=== PATIENT | male | born 1960 | race Caucasian/White ===

== ENCOUNTER 2022-03-24 05:46 | Emergency (ER) | payer MEDICAID, SELFPAY ==
--- NOTE | 2022-03-24 | ECG_ITS ---
Test Reason : MED CLEARANCE Blood Pressure : / mmHG Vent. Rate : 066 BPM Atrial Rate : 066 BPM P-R Int : 158 ms QRS Dur : 094 ms QT Int : 412 ms P-R-T Axes : 032 009 021 degrees QTc Int : 431 ms Normal sinus rhythm Normal ECG When compared with ECG of 06-FEB-2020 20:11, No significant change was found Referred By: Generic ED Physician Electronically Signed By:CHARI ALFREDO
[2022-03-24 05:49] VITALS: BP 165/95; PULSE 86; RESP 16; TEMP 36.9; O2SAT 94; BMI 34.9
[2022-03-24 06:17] LABS: MANUAL DIFF FLAG NO
[2022-03-24 06:25] LABS: COVID-19 Test Negative (Negative)
[2022-03-24 06:36] LABS: Basophils Absolute Auto 0.1 X10*3/uL (0.0-0.2); Basophils Percent Auto 0.8 % (0-2); Eosinophils Absolute Auto 0.1 X10*3/uL (0.0-0.4); Eosinophils Percent Auto 1.9 % (0-4); Hematocrit 42.8 % (42.0-52.0); Imm Gran Abs Auto 0.02 X10*3/uL (0.00-0.03); Imm Gran Pct Auto 0.3 % (0.0-0.4); Lymphocytes Absolute Auto 1.4 X10*3/uL (1.2-4.9); Lymphocytes Percent Auto 21.9 % (20-40); Mean Corpuscular Volume 94.1 fL (80.0-98.0); Monocytes Absolute Auto 0.6 X10*3/uL (0.1-1.2); Monocytes Percent Auto 9.3 % (2-11); Neutrophils Absolute Auto 4.2 x10*3/uL (2.0-8.3); Neutrophils Percent Auto 65.8 % (45-73); Platelet Count 187 X10*3/uL (160-400); Red Blood Count 4.55 X10*6/uL (4.60-5.80); Red Cell Distribution Width 13.8 % (11.0-16.0); White Blood Count 6.4 X10*3/uL (4.8-10.8)
--- NOTE | 2022-03-24 06:47 | PC.NURSE ---
[facility] referral completed/confirmed/pending ETA, med rec completed/pending provider's approval, behavior non concerning, will continue to monitor.
[2022-03-24 06:56] LABS: Alanine Aminotransferase 13 U/L (0-40); Albumin Level 4.2 g/dL (3.5-5.0); Alkaline Phosphatase 75 U/L (39-117); Anion Gap 14 (12-20); Aspartate Amino Transferase 18 U/L (5-37); Bilirubin Total 0.8 mg/dL (0.0-1.0); Blood Urea Nitrogen 11 mg/dL (9-16); Calcium 8.8 mg/dL (8.4-10.2); Carbon Dioxide 23 mmol/L (22-29); Chloride 104 mmol/L (96-108); Creatinine Clr Calc Pharmacy 81.4; Estimated Glomerular Filt Rate 58; Glucose Random 103 mg/dL (60-115); Potassium 3.3 mmol/L (3.3-5.1); Sodium 138 mmol/L (135-145); Total Protein 6.9 g/dL (6.5-8.0)
[2022-03-24 07:01] LABS: Acetaminophen LAB < 1 mcg/mL (<30); Ethanol < 10 mg/dL; Magnesium 1.9 mg/dL (1.6-2.6); Salicylate < 5.0 mg/dL (15-30)
[2022-03-24 07:30] LABS: Amphetamine Screen Urine Not Detected (Not Detect); Barbiturates, Urine Not Detected (Not Detect); Benzodiazepines Screen Urine Not Detected (Not Detect); Cannabinoid Screen Urine Not Detected (Not Detect); Cocaine Screen Urine Not Detected (Not Detect); Fentanyl, urine Not Detected (Not Detect); Opiate Screen Urine Not Detected (Not Detect); Phencyclidine Screen Urine Not Detected (Not Detect)
[2022-03-24 07:41] LABS: Appearance Urine Clear; Color Urine Yellow; Glucose Urine UA Negative (Negative); Leukocyte Esterase Urine Negative (Negative); Nitrite Urine Negative (Negative); Urine Blood Negative (Negative); Urine Ketones Negative (Negative); Urine Protein Negative (Neg-Trace)
[2022-03-24 08:00] VITALS: BP 160/84; PULSE 60; RESP 14; TEMP 36.7; O2SAT 95
--- NOTE | 2022-03-24 08:07 | ED.GENADULT ---
HPI - General Adult General Chief complaint: Psychiatric Symptoms Stated complaint: crisis Time Seen by Provider: 03/24/22 08:06 Source: patient, EMS and police Mode of arrival: EMS Limitations: no limitations History of Present Illness HPI narrative: Patient is a 62 year old male presenting to the emergency department today with suicidal ideation. Patient states that he has been much more depressed lately and is suicidal. Patient states that he will drink bleach to kill himself. Patient denies any dizziness, lightheadedness, abdominal pain, nausea, vomiting, fever, chills, blurry vision, double vision, loss of vision, chest pain, difficulty breathing, shortness of breath, back pain, night sweats, pain with urination, increased urinary frequency, increased urinary urgency, blood in his urine or stool, syncope or a near syncopal episode, recent trauma or falls, bowel incontinence, bladder incontinence, bowel retention, bladder retention, or any other complaints at this time. Onset (ago): day(s) Radiation: non-radiation Severity: moderate Severity scale (1-10): 5 Relieving factors: none Exacerbating factors: none Associated symptoms: denies other symptoms Treatments prior to arrival: none Related Data Home Medications Medication Instructions Recorded Confirmed amlodipine 2.5 mg tablet 2.5 mg PO DAILY 03/24/22 03/24/22 buspirone 10 mg tablet 10 mg PO BID 03/24/22 03/24/22 cholecalciferol (vitamin D3) 50 50 mcg PO DAILY 03/24/22 03/24/22 mcg (2,000 unit) tablet cyanocobalamin (vitamin B-12) 1,000 mcg PO DAILY 03/24/22 03/24/22 1,000 mcg tablet omeprazole 20 mg capsule,delayed 20 mg PO DAILY 03/24/22 03/24/22 release sertraline 200 mg capsule 200 mg PO DAILY 03/24/22 03/24/22 Allergies Allergy/AdvReac Type Severity Reaction Status Date / Time No Known Allergies Allergy Unverified 03/05/20 19:52 [No Known Allergies*] Review of Systems Constitutional: Constitutional: Reports no additional constitutional complaints, Denies chills, Denies fever(s) and Denies night sweats Eyes: Eyes: Reports no additional eye complaints, Denies blurry vision, Denies change in vision, Denies diplopia, Denies eye discharge, Denies loss of vision and Denies eye pain ENT: Denies dizziness Cardiovascular: Cardiovascular: Reports no additional cardiovascular complaints, Denies chest pain, Denies lightheadedness, Denies Loss of Consciousness and Denies dyspnea Respiratory: Respiratory: Reports no additional respiratory complaints and Denies dyspnea Gastrointestinal: Gastrointestinal: Reports no additional gastrointestinal complaints, Denies abdominal pain, Denies melena, Denies hematochezia, Denies change in bowel habits and Denies change in stool character Genitourinary: Genitourinary: Reports no additional male genitourinary complaints, Denies hematuria, Denies oliguria, Denies difficulty urinating, Denies dysuria, Denies urinary frequency, Denies urinary hesitancy, Denies urinary incontinence and Denies urinary urgency Musculoskeletal: Musculoskeletal: Reports no additional musculoskeletal complaints, Denies numbness and Denies tingling Neurologic: Denies dizziness, Denies loss of vision, Denies numbness and Denies tingling Psychiatric: Psychiatric: Reports no additional psychiatric complaints and Reports suicidal ideation Endocrine: Endocrine: Reports no additional endocrine complaints Hematologic/Lymphatic: Hematologic/Lymphatic: Reports no additional hematologic/lymphatic complaints Allergic/Immunologic: Allergic/Immunologic: Reports no additional allergic/immunologic complaints PMFSH Past Medical History Attestation statement: The following information was validated with the patient. Source: old records reviewed Social History Social History Advance Directives: No Physical Exam ED Vital Signs: Vital Signs - 24 hr 03/24/22 05:49 03/24/22 08:00 03/24/22 10:23 Temperature 98.4 F 98.0 F 97.2 F Pulse Rate 86 60 58 Respiratory Rate 16 14 Blood Pressure 165/95 H 160/84 H 162/82 H Pulse Oximetry 94 95 95 Oxygen Delivery Method Room Air Room Air Room Air 03/24/22 15:24 Temperature Pulse Rate Respiratory Rate 18 Blood Pressure Pulse Oximetry Oxygen Delivery Method BMI result Body Mass Index 34.9 Const General: cooperative, no acute distress, alert and awake Nutritional Appearance: well nourished Orientation/consciousness: patient oriented x3 Limitations: no limitations HENMT Head: Yes normal to inspection and Yes atraumatic Ears: hearing grossly normal bilaterally and external ears normal General nose exam: Normal external nose present, no nasal discharge noted and no epistaxis Face and sinus: Yes normal facial exam, No abrasion and No laceration Mouth: Normal oral and palatal mucosa present, no drooling and no muffled voice Eyes General: appearance normal, both eyes and all related structures Periorbital: periorbital findings normal Eyelids: Yes eyelids normal Conjunctivae: conjunctivae normal Pupils: Equal, round and reactive pupils present EOM: EOMs intact bilaterally Neck Neck: Yes normal visual inspection, Yes full ROM and Yes no lymphadenopathy Chest Chest palpation & inspection: normal inspection of the chest Resp Effort & Inspection: normal respiratory effort and able to speak in complete sentences Auscultation: clear to auscultation bilaterally Cardio Rate: regular rate Rhythm: regular rhythm GI Inspection: Yes normal to inspection Neuro General: patient oriented x3 and moves all extremities Cranial nerves: Yes Equal, round and reactive pupils present Cognition (Neuro): normal cognition Motor exam (neuro): 5/5 motor strength present throughout Sensory Exam: Normal double simultaneous stimulation for sensation Coordination: [id number] test normal Extrem General: Yes normal to inspection, Yes full ROM and Yes capillary refill normal Psych Appearance: grossly normal Mental Status: mental status grossly normal Affect: Sad affect present Attitude: cooperative Thought process: Normal thought process present Thought content: Suicidality present Insight: Good insight present (Psych) Medical Decision Making MDM Narrative Medical decision making narrative: Patient is a 62 year old male presenting to the emergency department today, on a section 12, with suicidal ideation. Patient's physical exam showed a depressed and suicidal individual. Patient's blood work was unremarkable. Patient's urine showed no acute process. CARE team evaluated the patient and recommended psychiatric admission. Patient is medically cleared for transfer or admission to inpatient psychiatric care. I explained my physical exam findings as well as all test results to the patient. I answered all questions asked by the patient. Patient verbalized agreement and understanding with this treatment plan and admission at the [facility]. Medical Records Medical records reviewed: Yes I reviewed the patient's medical records. Lab Data Lab results reviewed: Yes I reviewed the patient's lab results. Result diagrams: 03/24/22 06:06 03/24/22 06:06 Labs: Lab Results 03/24/22 03/24/22 03/24/22 Range/Units 06:00 06:06 06:06 WBC 6.4 (4.8-10.8) X10*3/uL RBC 4.55 L (4.60-5.80) X10*6/uL Hgb 15.0 (14.0-18.0) g/dl Hct 42.8 (42.0-52.0) % MCV 94.1 (80.0-98.0) fL MCH 33.0 (27.0-33.0) pg MCHC 35.0 (31.0-36.0) g/dl RDW 13.8 (11.0-16.0) % Plt Count 187 (160-400) X10*3/uL MPV 12.0 (9.4-12.4) fL Immature Gran % (Auto) 0.3 (0.0-0.4) % Neut % (Auto) 65.8 (45-73) % Lymph % (Auto) 21.9 (20-40) % [place] % (Auto) 9.3 (2-11) % Eos % (Auto) 1.9 (0-4) % Baso % (Auto) 0.8 (0-2) % Lymph # (Auto) 1.4 (1.2-4.9) X10*3/uL [place] # (Auto) 0.6 (0.1-1.2) X10*3/uL Eos # (Auto) 0.1 (0.0-0.4) X10*3/uL Baso # (Auto) 0.1 (0.0-0.2) X10*3/uL Abs Immat Gran (auto) 0.02 (0.00-0.03) X10*3/uL Absolute Neuts (auto) 4.2 (2.0-8.3) x10*3/uL Absolute Nucleated RBC 0.000 (0.0-0.012) X10*3/uL Nucleated RBC % (auto) 0.0 (0.0-0.2) /100WBC Sodium 138 (135-145) mmol/L Potassium 3.3 (3.3-5.1) mmol/L Chloride 104 (96-108) mmol/L Carbon Dioxide 23 (22-29) mmol/L Anion Gap 14 (12-20) BUN 11 (9-16) mg/dL Creatinine 1.26 (0.5-1.4) mg/dL Estim Creat Clear Calc 81.4 Estimated GFR 58 Random Glucose 103 (60-115) mg/dL Calcium 8.8 (8.4-10.2) mg/dL Magnesium (1.6-2.6) mg/dL Total Bilirubin 0.8 (0.0-1.0) mg/dL AST 18 (5-37) U/L ALT 13 (0-40) U/L Alkaline Phosphatase 75 (39-117) U/L Total Protein 6.9 (6.5-8.0) g/dL Albumin 4.2 (3.5-5.0) g/dL Urine Color Urine Appearance Urine pH (5.0-9.0) Ur Specific [place] (1.005-1.025) Urine Protein (Neg-Trace) mg/dL Urine Glucose (UA) (Negative) mg/dL Urine Ketones (Negative) mg/dL Urine Blood (Negative) Urine Nitrite (Negative) Ur Leukocyte Esterase (Negative) Salicylates (15-30) mg/dL Urine Opiates Screen (Not Detect) Urine Fentanyl Screen (Not Detect) Acetaminophen (<30) mcg/mL Ur Barbiturates Screen (Not Detect) Ur Phencyclidine Scrn (Not Detect) Ur Amphetamines Screen (Not Detect) U Benzodiazepines Scrn (Not Detect) Urine Cocaine Screen (Not Detect) U Marijuana (THC) Screen (Not Detect) Ethyl Alcohol mg/dL SARS-CoV-2 (PCR) COVID-19 (T[facility]SHA) Negative (Negative) COVID-19 Clin Com See Note Influenza Type A (PCR) (Negative) Influenza Type B (PCR) (Negative) RSV RNA Qual (PCR) (Negative) SARS-CoV-2 RNA (RT-PCR) (Negative) 03/24/22 03/24/22 03/24/22 Range/Units 06:06 07:05 07:05 WBC (4.8-10.8) X10*3/uL RBC (4.60-5.80) X10*6/uL Hgb (14.0-18.0) g/dl Hct (42.0-52.0) % MCV (80.0-98.0) fL MCH (27.0-33.0) pg MCHC (31.0-36.0) g/dl RDW (11.0-16.0) % Plt Count (160-400) X10*3/uL MPV (9.4-12.4) fL Immature Gran % (Auto) (0.0-0.4) % Neut % (Auto) (45-73) % Lymph % (Auto) (20-40) % [place] % (Auto) (2-11) % Eos % (Auto) (0-4) % Baso % (Auto) (0-2) % Lymph # (Auto) (1.2-4.9) X10*3/uL [place] # (Auto) (0.1-1.2) X10*3/uL Eos # (Auto) (0.0-0.4) X10*3/uL Baso # (Auto) (0.0-0.2) X10*3/uL Abs Immat Gran (auto) (0.00-0.03) X10*3/uL Absolute Neuts (auto) (2.0-8.3) x10*3/uL Absolute Nucleated RBC (0.0-0.012) X10*3/uL Nucleated RBC % (auto) (0.0-0.2) /100WBC Sodium (135-145) mmol/L Potassium (3.3-5.1) mmol/L Chloride (96-108) mmol/L Carbon Dioxide (22-29) mmol/L Anion Gap (12-20) BUN (9-16) mg/dL Creatinine (0.5-1.4) mg/dL Estim Creat Clear Calc Estimated GFR Random Glucose (60-115) mg/dL Calcium (8.4-10.2) mg/dL Magnesium 1.9 (1.6-2.6) mg/dL Total Bilirubin (0.0-1.0) mg/dL AST (5-37) U/L ALT (0-40) U/L Alkaline Phosphatase (39-117) U/L Total Protein (6.5-8.0) g/dL Albumin (3.5-5.0) g/dL Urine Color Yellow Urine Appearance Clear Urine pH 6.0 (5.0-9.0) Ur Specific [place] 1.010 (1.005-1.025) Urine Protein Negative (Neg-Trace) mg/dL Urine Glucose (UA) Negative (Negative) mg/dL Urine Ketones Negative (Negative) mg/dL Urine Blood Negative (Negative) Urine Nitrite Negative (Negative) Ur Leukocyte Esterase Negative (Negative) Salicylates < 5.0 L (15-30) mg/dL Urine Opiates Screen Not Detected (Not Detect) Urine Fentanyl Screen Not Detected (Not Detect) Acetaminophen < 1 (<30) mcg/mL Ur Barbiturates Screen Not Detected (Not Detect) Ur Phencyclidine Scrn Not Detected (Not Detect) Ur Amphetamines Screen Not Detected (Not Detect) U Benzodiazepines Scrn Not Detected (Not Detect) Urine Cocaine Screen Not Detected (Not Detect) U Marijuana (THC) Screen Not Detected (Not Detect) Ethyl Alcohol < 10 mg/dL SARS-CoV-2 (PCR) COVID-19 (TARSHA) (Negative) COVID-19 Clin Com Influenza Type A (PCR) (Negative) Influenza Type B (PCR) (Negative) RSV RNA Qual (PCR) (Negative) SARS-CoV-2 RNA (RT-PCR) (Negative) 03/24/22 03/24/22 Range/Units 10:40 10:40 WBC (4.8-10.8) X10*3/uL RBC (4.60-5.80) X10*6/uL Hgb (14.0-18.0) g/dl Hct (42.0-52.0) % MCV (80.0-98.0) fL MCH (27.0-33.0) pg MCHC (31.0-36.0) g/dl RDW (11.0-16.0) % Plt Count (160-400) X10*3/uL MPV (9.4-12.4) fL Immature Gran % (Auto) (0.0-0.4) % Neut % (Auto) (45-73) % Lymph % (Auto) (20-40) % [place] % (Auto) (2-11) % Eos % (Auto) (0-4) % Baso % (Auto) (0-2) % Lymph # (Auto) (1.2-4.9) X10*3/uL [place] # (Auto) (0.1-1.2) X10*3/uL Eos # (Auto) (0.0-0.4) X10*3/uL Baso # (Auto) (0.0-0.2) X10*3/uL Abs Immat Gran (auto) (0.00-0.03) X10*3/uL Absolute Neuts (auto) (2.0-8.3) x10*3/uL Absolute Nucleated RBC (0.0-0.012) X10*3/uL Nucleated RBC % (auto) (0.0-0.2) /100WBC Sodium (135-145) mmol/L Potassium (3.3-5.1) mmol/L Chloride (96-108) mmol/L Carbon Dioxide (22-29) mmol/L Anion Gap (12-20) BUN (9-16) mg/dL Creatinine (0.5-1.4) mg/dL Estim Creat Clear Calc Estimated GFR Random Glucose (60-115) mg/dL Calcium (8.4-10.2) mg/dL Magnesium (1.6-2.6) mg/dL Total Bilirubin (0.0-1.0) mg/dL AST (5-37) U/L ALT (0-40) U/L Alkaline Phosphatase (39-117) U/L Total Protein (6.5-8.0) g/dL Albumin (3.5-5.0) g/dL Urine Color Urine Appearance Urine pH (5.0-9.0) Ur Specific [place] (1.005-1.025) Urine Protein (Neg-Trace) mg/dL Urine Glucose (UA) (Negative) mg/dL Urine Ketones (Negative) mg/dL Urine Blood (Negative) Urine Nitrite (Negative) Ur Leukocyte Esterase (Negative) Salicylates (15-30) mg/dL Urine Opiates Screen (Not Detect) Urine Fentanyl Screen (Not Detect) Acetaminophen (<30) mcg/mL Ur Barbiturates Screen (Not Detect) Ur Phencyclidine Scrn (Not Detect) Ur Amphetamines Screen (Not Detect) U Benzodiazepines Scrn (Not Detect) Urine Cocaine Screen (Not Detect) U Marijuana (THC) Screen (Not Detect) Ethyl Alcohol mg/dL SARS-CoV-2 (PCR) Cancelled COVID-19 ([facility]ARSHA) (Negative) COVID-19 Clin Com Influenza Type A (PCR) NEGATIVE (Negative) Influenza Type B (PCR) NEGATIVE (Negative) RSV RNA Qual (PCR) NEGATIVE (Negative) SARS-CoV-2 RNA (RT-PCR) NEGATIVE (Negative) ECG Data Attestation: I personally reviewed and interpreted this ECG as follows: Prior ECG tracings: available for review Interpretation: Vent. Rate: 066 BPM ? ? Atrial Rate: 066 BPM P-R Int: 158 ms? QRS Dur: 094 ms QT Int: 412 ms ? ? ? P-R-T Axes: 032 009 021 degrees QTc Int: 431 ms ? Normal sinus rhythm Normal ECG When compared with ECG of 06-FEB-2020 20:11, No significant change was found ? Electronically Signed By:MARK BHATT DOFACP Dictated By: Mark Bhatt DO Signed By: Electronically signed by Mark Bhatt DO 03/24/22 1003 Discharge Plan Discharge Clinical Impression: Depression, Suicidal ideation Patient Disposition: Xfer Other [facility] Inst[facility]: Depression (ED) Prescriptions: No Action buspirone 10 mg Tablet 10 mg PO BID sertraline 200 mg Capsule 200 mg PO DAILY cyanocobalamin (vitamin B-12) 1,000 mcg Tablet 1,000 mcg PO DAILY amlodipine 2.5 mg Tablet 2.5 mg PO DAILY omeprazole 20 mg Capsule,Delayed Release(Dr/Ec) 20 mg PO DAILY cholecalciferol (vitamin D3) 50 mcg (2,000 unit) Tablet 50 mcg PO DAILY Interventions: ED Discharge Assessment Last Done: 03/24/22 15:40 Discharge Date/Time: 03/24/22 15:42 Print Language: Estonian
[2022-03-24 10:23] VITALS: BP 162/82; PULSE 58; TEMP 36.2; O2SAT 95
--- NOTE | 2022-03-24 10:59 | PHA.MEDREC ---
Addendum entered by Concha Avitia RPh 03/24/22 12:19: [ [facility] 03/24/22 @1220; added amlodipine, omeprazole, vitamin d, vitamin b12, and confirmed buspar and sertraline Original Note: Pharmacy Consult ? Medication Reconciliation Pharmacy has completed the medication reconciliation. Pt able to name sertraline and buspar, however he noted he also takes a blood pressure medication and omeprazole. [facility] which I am still waiting on, will update home medications once I receive that
--- NOTE | 2022-03-24 11:03 | PC.NURSE ---
[facility] WAITING TO BE SEEN BY [facility]
--- NOTE | 2022-03-24 11:09 | PC.NURSE ---
[facility] TODAY
[2022-03-24 11:30] LABS: Influenza A PCR NEGATIVE (Negative); Influenza B PCR NEGATIVE (Negative); Resp Syncy Virus RNA Qual PCR NEGATIVE (Negative); SARS COV2 PCR INHOUSE NEGATIVE (Negative)
[2022-03-24] MEDS: Sertraline HCL 100 MG TABLET 200 MG PO (12:01)
[2022-03-24] MEDS: busPIRone HCl 10 MG TABLET PO (12:01)
--- NOTE | 2022-03-24 12:49 | MHC.CARE ---
[facility] is [facility]
--- NOTE | 2022-03-24 14:49 | MHC.CARE ---
Pt has been accepted to the [facility]
[2022-03-24 15:24] VITALS: RESP 18
== END 2022-03-24 15:42 | disposition other institution (70) ==
PROVIDERS: Physician Assistant Medical; Emergency Provider Emergency Medicine Emergency Medical Services; PCP Family Medicine
DX: F32.A Depression, unspecified (principal); R45.851 Suicidal ideations; Z20.822 Contact with and (suspected) exposure to COVID-19; Z79.899 Other long term (current) drug therapy
CPT/HCPCS: 0241U; 36415; 80053; 80143; 80179; 80307; 81003; 82077; 83735; 85025; 87635; 93005; 99284; U0003; U0005

== ENCOUNTER 2022-12-31 05:04 | Emergency (ER) | payer OTHER, SELFPAY ==
--- NOTE | 2022-12-31 | ECG_ITS ---
Test Reason : Checking for QT Prolongation Blood Pressure : / mmHG Vent. Rate : 061 BPM Atrial Rate : 061 BPM P-R Int : 174 ms QRS Dur : 090 ms QT Int : 406 ms P-R-T Axes : 032 -02 004 degrees QTc Int : 408 ms Normal sinus rhythm Normal ECG When compared with ECG of 24-MAR-2022 06:17, T wave amplitude has decreased in Anterior leads Referred By: Kirsten Main Electronically Signed By:GILDA CUNNINGHAM MD
[2022-12-31 05:09] VITALS: BP 178/99; PULSE 88; RESP 17; TEMP 37; O2SAT 94; BMI 35.6
[2022-12-31 05:51] LABS: Basophils Absolute Auto 0.1 X10*3/uL (0.0-0.2); Basophils Percent Auto 0.8 % (0-2); Eosinophils Absolute Auto 0.2 X10*3/uL (0.0-0.4); Eosinophils Percent Auto 1.9 % (0-4); Hemoglobin 14.5 g/dl (14.0-18.0); Imm Gran Abs Auto 0.04 X10*3/uL (0.00-0.03); Imm Gran Pct Auto 0.5 % (0.0-0.4); Lymphocytes Percent Auto 12.1 % (20-40); MANUAL DIFF FLAG NO; Mean Corpuscular HGB Conc 34.5 g/dl (31.0-36.0); Mean Corpuscular Hemoglobin 32.5 pg (27.0-33.0); Mean Corpuscular Volume 94.2 fL (80.0-98.0); Mean Platelet Volume 12.9 fL (9.4-12.4); Monocytes Absolute Auto 0.7 X10*3/uL (0.1-1.2); Monocytes Percent Auto 8.5 % (2-11); Neutrophils Percent Auto 76.2 % (45-73); Platelet Count 148 X10*3/uL (160-400); Red Blood Count 4.46 X10*6/uL (4.60-5.80); Red Cell Distribution Width 14.1 % (11.0-16.0); White Blood Count 7.9 X10*3/uL (4.8-10.8)
[2022-12-31 05:53] LABS: Appearance Urine Clear; Color Urine Dark Yellow; Glucose Urine UA Negative (Negative); Leukocyte Esterase Urine Negative (Negative); Nitrite Urine Negative (Negative); PH 5.5 (5.0-9.0); Specific Gravity - Urine >= 1.030 (1.005-1.025); UMIC TRIGGER UA YES; Urine Blood Negative (Negative); Urine Ketones Negative (Negative); Urine Protein 30 (1+) mg/dL (Neg-Trace)
[2022-12-31 05:58] LABS: Bacteria Urine None Seen (None Seen); RBC Urine 0-2 /HPF (0-2); Squamous Epithelial Cell Urine 0-2 /HPF (0-2); WBC Urine 0-5 /HPF (0-5)
[2022-12-31 06:02] LABS: Amphetamine Screen Urine Not Detected (Not Detect); Barbiturates, Urine Not Detected (Not Detect); Benzodiazepines Screen Urine Not Detected (Not Detect); Cannabinoid Screen Urine Not Detected (Not Detect); Cocaine Screen Urine Not Detected (Not Detect); Fentanyl, urine Not Detected (Not Detect); Opiate Screen Urine Not Detected (Not Detect); Phencyclidine Screen Urine Not Detected (Not Detect)
[2022-12-31 06:05] LABS: Alanine Aminotransferase 8 U/L (0-40); Albumin Level 4.1 g/dL (3.5-5.0); Alkaline Phosphatase 67 U/L (39-117); Anion Gap 12 (12-20); Aspartate Amino Transferase 14 U/L (5-37); Bilirubin Total 0.6 mg/dL (0.0-1.0); Blood Urea Nitrogen 10 mg/dL (9-16); Calcium 9.4 mg/dL (8.4-10.2); Carbon Dioxide 28 mmol/L (22-29); Chloride 104 mmol/L (96-108); Creatinine Clr Calc Pharmacy 79.7; Estimated Glomerular Filt Rate 56; Ethanol < 10 mg/dL; Glucose Random 131 mg/dL (60-115); Potassium 3.9 mmol/L (3.3-5.1); Sodium 140 mmol/L (135-145); Total Protein 7.1 g/dL (6.5-8.0)
[2022-12-31 06:06] LABS: Acetaminophen LAB < 17 mcg/mL (<30); Salicylate < 5.0 mg/dL (15-30)
--- NOTE | 2022-12-31 06:21 | PC.NURSE ---
Patient is in bed resting quietly, no distress observed/reported, care consult ordered for SI, pending evaluation in the morning, med rec completed based on patient report unable to obtain med claim history because [facility], behavior non concerning, will continue to monitor.
[2022-12-31 06:25] LABS: TSH reflex Free T4 3.07 uIU/mL (0.32-4.0)
--- NOTE | 2022-12-31 07:28 | PC.NURSE ---
Resumed care of patient this morning, pt is awake, finished eating breakfast. this financial underwriter sat down and talked with patient. He reports he feels that his current medications are working well, and that he has good support in the community, however when all of the negative thoughts build up he has a hard time handling them. Last night was the first time he reports actually acting on his SI thoughts by mixing the household model maker scale. He reports he mixed them, and then sat there and looked at them for awhile before calling crisis but did not drink any of them. He is a/ox4, reporting that he would alert staff if he had any continued thoughts of harming himself. Provider is currently bedside to talk with patient. Awaiting care team consult at this time.
--- NOTE | 2022-12-31 07:29 | ED.PSYCH ---
HPI - Psych General Chief Complaint: Psychiatric Symptoms Stated Complaint: si Time Seen by Provider: 12/31/22 07:29 Source: patient, EMS, RN notes reviewed and old records reviewed Mode of arrival: EMS History of Present Illness HPI Narrative: 62-year-old male with no significant past medical history presenting to the ED via EMS complaining of suicidal ideations with plan to drink a bunch of cleaning products early this morning. Reports family problems, without support system. Admits to prior suicide attempts in the past w/overdosing. Denies known injury/trauma or fall, HI, substance abuse or ETOH, auditory/visual hallucinations MD complaint: suicidal ideation Related Data Home Medications Medication Instructions Recorded Confirmed amlodipine 2.5 mg tablet 5 mg PO DAILY 03/24/22 12/31/22 buspirone 10 mg tablet 30 mg PO BID 03/24/22 12/31/22 cholecalciferol (vitamin D3) 50 50 mcg PO DAILY 03/24/22 12/31/22 mcg (2,000 unit) tablet cyanocobalamin (vitamin B-12) 1,000 mcg PO DAILY 03/24/22 12/31/22 1,000 mcg tablet omeprazole 20 mg capsule,delayed 20 mg PO BEDTIME 03/24/22 12/31/22 release sertraline 100 mg tablet 200 mg PO DAILY 12/31/22 12/31/22 Previous Rx's Medication Instructions Recorded amoxicillin 875 mg-potassium 1 tab PO BID #13 tabs 12/31/22 clavulanate 125 mg tablet Allergies Allergy/AdvReac Type Severity Reaction Status Date / Time No Known Allergies Allergy Unverified 03/05/20 19:52 [No Known Allergies*] Review of Systems Review of Systems: Constitutional: No Fever, No Chills, No Fatigue, No Malaise ENT/Mouth: No Ear Pain, No Nasal Congestion, No sore throat, No Rhinorrhea, No Swallowing Difficulty Eyes: No Eye Pain, No Swelling, No Redness, No Vision Changes Cardiovascular: No Chest Pain, No SOB Respiratory: No Cough, No Sputum, No Dyspnea Gastrointestinal: No Nausea, No Vomiting, No Diarrhea, No Constipation, No Abdominal pain Genitourinary: No Dysuria, No Flank Paiy Musculoskeletal: No joint pain, No Myalgias, No Joint Swelling Skin: No Skin Lesions, No rash Neuro: No Weakness, No Numbness, No Paresthesias, No Loss of Consciousness Psych: No Anxiety/Panic, + Depression, + SI, HI/AH/VH, + Social Issues Yes all other systems are reviewed and are negative Constitutional: Constitutional: Reports as per [facility] Past Medical History Attestation statement: The following information was validated with the patient. Source: old records reviewed Social History Social History Alcohol intake: former Use of substances other than those prescribed or required for medical reasons: No Advance Directives: No Advance Directives Information Provided: Yes Healthcare Proxy: No Guardian: No Physical Exam Vital Signs: Vital Signs: Last Vital Signs Temp 98.1 F 12/31/22 15:17 Pulse 79 12/31/22 15:17 Resp 20 12/31/22 15:17 BP 174/98 H 12/31/22 15:17 Pulse Ox 97 12/31/22 15:17 O2 Del Method Room Air 12/31/22 15:17 BMI result Body Mass Index 35.6 Const: General: cooperative, healthy appearing and no acute distress Orientation/consciousness: patient oriented x3 Limitations: no limitations HEENT: Head: Yes normal to inspection and Yes atraumatic Ears: hearing grossly normal bilaterally General nose exam: Normal external nose present Face and sinus: Yes normal facial exam Eyes: General: appearance normal, both eyes and all related structures EOM: EOMs intact bilaterally Neck: Neck: Yes normal visual inspection and Yes no meningeal signs Resp: Effort & Inspection: normal respiratory effort and no respiratory distress Auscultation: clear to auscultation bilaterally Cardio: Rate: regular rate Heart sounds: S1 normal heart sound present and S2 normal heart sound present GI: Inspection: Yes normal to inspection Palpation (GI): Soft to palpation, nontender, no guarding and not rigid Skin: Rashes: no rashes Wounds: no wounds Neuro: General: patient oriented x3, tone normal, no meningeal signs and CN's II-XI intact bilaterally Gait exam (Neuro): Normal gait present Extrem: General: Yes normal to inspection Psych: Speech and movement: Normal speech and movement present Thought content: Suicidality present, no homicidality, no hallucinations and Depressive thoughts present Insight: Good insight present (Psych) Judgement: Good judgement present (Psych) Course Course Course Narrative: -labs unremarkable. Tox screen negative -physician observation initiated at 07:47 as patient needs more time to be evaluated by CARE team -1630--ED care transferred to ANTOINETTE burching CARE team rosemary Reevaluation(s) Reevaluation #1: Patient was evaluated by care team, Patient will be transferred to [facility]. Time: 17:12 Medications Administered Generic Name Dose Route Start Last Admin Trade Name Freq PRN Reason Stop Dose Admin Amlodipine Besylate 5 mg 12/31/22 10:00 12/31/22 10:12 Amlodipine Besylate 5 Mg Tablet PO 5 mg DAILY TRAVIS Administration Protocol Buspirone HCl 30 mg 12/31/22 10:00 12/31/22 10:12 Buspirone Hcl 10 Mg Tablet PO 30 mg BID TRAVIS Administration Cyanocobalamin 1,000 mcg 12/31/22 10:00 12/31/22 10:12 Cyanocobalamin (Vitamin B-12) 1,000 Mcg Tablet PO 1,000 mcg DAILY TRAVIS Administration Sertraline HCl 200 mg 12/31/22 10:00 12/31/22 10:13 Sertraline Hcl 100 Mg Tablet PO 200 mg DAILY TRAVIS Administration Vitamin D 50 mcg 12/31/22 10:00 12/31/22 10:12 Cholecalciferol (Vitamin D3) 25 Mcg Tablet PO 50 mcg DAILY TRAVIS Administration Medical Decision Making Medical Decision Making MDM Narrative: 62-year-old male with no significant past medical history presenting to the ED via EMS complaining of suicidal ideations with plan to drink a bunch of cleaning products early this morning. On exam mildly hypertensive, NAD, nontoxic appearing, depressed with suicidal ideations, no evidence of trauma. Concern for SI. Rule out organic causes Plan: Labs, tox screen, care team consult Please refer to course for remaining clinical decision making, interpretation of labs/imaging results, and discussions with consultants and/or family members. Differential Diagnosis Differential Diagnoses: The differential diagnosis associated with the presentation includes As above Admission/Observation Consideration of admission/observation: Escalation of care including admission/observation considered Consult Healthcare Provider Management of the patient was discussed with: Behavioral Health Provider Lab Data [facility] Lab Attestation statement: I reviewed the patient's lab results. 12/31/22 05:39 12/31/22 05:39 Labs: Lab Results 07/15/23 07/15/23 07/15/23 Range/Units 05:39 05:39 05:39 WBC 7.9 (4.8-10.8) X10*3/uL RBC 4.46 L (4.60-5.80) X10*6/uL Hgb 14.5 (14.0-18.0) g/dl Hct 42.0 (42.0-52.0) % MCV 94.2 (80.0-98.0) fL MCH 32.5 (27.0-33.0) pg MCHC 34.5 (31.0-36.0) g/dl RDW 14.1 (11.0-16.0) % Plt Count 148 L (160-400) X10*3/uL MPV 12.9 H (9.4-12.4) fL Immature Gran % (Auto) 0.5 H (0.0-0.4) % Neut % (Auto) 76.2 H (45-73) % Lymph % (Auto) 12.1 L (20-40) % [place] % (Auto) 8.5 (2-11) % Eos % (Auto) 1.9 (0-4) % Baso % (Auto) 0.8 (0-2) % Lymph # (Auto) 1.0 L (1.2-4.9) X10*3/uL [place] # (Auto) 0.7 (0.1-1.2) X10*3/uL Eos # (Auto) 0.2 (0.0-0.4) X10*3/uL Baso # (Auto) 0.1 (0.0-0.2) X10*3/uL Abs Immat Gran (auto) 0.04 H (0.00-0.03) X10*3/uL Absolute Neuts (auto) 6.0 (2.0-8.3) x10*3/uL Absolute Nucleated RBC 0.000 (0.0-0.012) X10*3/uL Nucleated RBC % (auto) 0.0 (0.0-0.2) /100WBC Sodium 140 (135-145) mmol/L Potassium 3.9 (3.3-5.1) mmol/L Chloride 104 (96-108) mmol/L Carbon Dioxide 28 (22-29) mmol/L Anion Gap 12 (12-20) BUN 10 (9-16) mg/dL Creatinine 1.30 (0.5-1.4) mg/dL Estim Creat Clear Calc 79.7 Estimated GFR 56 Random Glucose 131 H (60-115) mg/dL Calcium 9.4 D (8.4-10.2) mg/dL Total Bilirubin 0.6 (0.0-1.0) mg/dL AST 14 (5-37) U/L ALT 8 (0-40) U/L Alkaline Phosphatase 67 (39-117) U/L Total Protein 7.1 (6.5-8.0) g/dL Albumin 4.1 (3.5-5.0) g/dL TSH (0.32-4.0) uIU/mL Urine Color Urine Appearance Urine pH (5.0-9.0) Ur Specific [place] (1.005-1.025) Urine Protein (Neg-Trace) mg/dL Urine Glucose (UA) (Negative) mg/dL Urine Ketones (Negative) mg/dL Urine Blood (Negative) Urine Nitrite (Negative) Ur Leukocyte Esterase (Negative) Urine RBC (0-2) /HPF Urine WBC (0-5) /HPF Ur Squamous Epith Cells (0-2) /HPF Urine Bacteria (None Seen) Hyaline Casts (0-2) /LPF Salicylates < 5.0 L (15-30) mg/dL Urine Opiates Screen (Not Detect) Urine Fentanyl Screen (Not Detect) Acetaminophen < 17 (<30) mcg/mL Ur Barbiturates Screen (Not Detect) Ur Phencyclidine Scrn (Not Detect) Ur Amphetamines Screen (Not Detect) U Benzodiazepines Scrn (Not Detect) Urine Cocaine Screen (Not Detect) U Marijuana (THC) Screen (Not Detect) Ethyl Alcohol < 10 mg/dL COVID-19 (TARSHA) (Negative) COVID-19 Clin Com 12/31/22 12/31/22 12/31/22 Range/Units 05:39 05:44 05:44 WBC (4.8-10.8) X10*3/uL RBC (4.60-5.80) X10*6/uL Hgb (14.0-18.0) g/dl Hct (42.0-52.0) % MCV (80.0-98.0) fL MCH (27.0-33.0) pg MCHC (31.0-36.0) g/dl RDW (11.0-16.0) % Plt Count (160-400) X10*3/uL MPV (9.4-12.4) fL Immature Gran % (Auto) (0.0-0.4) % Neut % (Auto) (45-73) % Lymph % (Auto) (20-40) % [place] % (Auto) (2-11) % Eos % (Auto) (0-4) % Baso % (Auto) (0-2) % Lymph # (Auto) (1.2-4.9) X10*3/uL [place] # (Auto) (0.1-1.2) X10*3/uL Eos # (Auto) (0.0-0.4) X10*3/uL Baso # (Auto) (0.0-0.2) X10*3/uL Abs Immat Gran (auto) (0.00-0.03) X10*3/uL Absolute Neuts (auto) (2.0-8.3) x10*3/uL Absolute Nucleated RBC (0.0-0.012) X10*3/uL Nucleated RBC % (auto) (0.0-0.2) /100WBC Sodium (135-145) mmol/L Potassium (3.3-5.1) mmol/L Chloride (96-108) mmol/L Carbon Dioxide (22-29) mmol/L Anion Gap (12-20) BUN (9-16) mg/dL Creatinine (0.5-1.4) mg/dL Estim Creat Clear Calc Estimated GFR Random Glucose (60-115) mg/dL Calcium (8.4-10.2) mg/dL Total Bilirubin (0.0-1.0) mg/dL AST (5-37) U/L ALT (0-40) U/L Alkaline Phosphatase (39-117) U/L Total Protein (6.5-8.0) g/dL Albumin (3.5-5.0) g/dL TSH 3.07 (0.32-4.0) uIU/mL Urine Color Dark Yellow Urine Appearance Clear Urine pH 5.5 (5.0-9.0) Ur Specific [place] >= 1.030 H (1.005-1.025) Urine Protein 30 (1+) H (Neg-Trace) mg/dL Urine Glucose (UA) Negative (Negative) mg/dL Urine Ketones Negative (Negative) mg/dL Urine Blood Negative (Negative) Urine Nitrite Negative (Negative) Ur Leukocyte Esterase Negative (Negative) Urine RBC 0-2 (0-2) /HPF Urine WBC 0-5 (0-5) /HPF Ur Squamous Epith Cells 0-2 (0-2) /HPF Urine Bacteria None Seen (None Seen) Hyaline Casts 3-5 (0-2) /LPF Salicylates (15-30) mg/dL Urine Opiates Screen Not Detected (Not Detect) Urine Fentanyl Screen Not Detected (Not Detect) Acetaminophen (<30) mcg/mL Ur Barbiturates Screen Not Detected (Not Detect) Ur Phencyclidine Scrn Not Detected (Not Detect) Ur Amphetamines Screen Not Detected (Not Detect) U Benzodiazepines Scrn Not Detected (Not Detect) Urine Cocaine Screen Not Detected (Not Detect) U Marijuana (THC) Screen Not Detected (Not Detect) Ethyl Alcohol mg/dL COVID-19 (TARSHA) (Negative) COVID-19 Clin Com 12/31/22 Range/Units 11:51 WBC (4.8-10.8) X10*3/uL RBC (4.60-5.80) X10*6/uL Hgb (14.0-18.0) g/dl Hct (42.0-52.0) % MCV (80.0-98.0) fL MCH (27.0-33.0) pg MCHC (31.0-36.0) g/dl RDW (11.0-16.0) % Plt Count (160-400) X10*3/uL MPV (9.4-12.4) fL Immature Gran % (Auto) (0.0-0.4) % Neut % (Auto) (45-73) % Lymph % (Auto) (20-40) % [place] % (Auto) (2-11) % Eos % (Auto) (0-4) % Baso % (Auto) (0-2) % Lymph # (Auto) (1.2-4.9) X10*3/uL [place] # (Auto) (0.1-1.2) X10*3/uL Eos # (Auto) (0.0-0.4) X10*3/uL Baso # (Auto) (0.0-0.2) X10*3/uL Abs Immat Gran (auto) (0.00-0.03) X10*3/uL Absolute Neuts (auto) (2.0-8.3) x10*3/uL Absolute Nucleated RBC (0.0-0.012) X10*3/uL Nucleated RBC % (auto) (0.0-0.2) /100WBC Sodium (135-145) mmol/L Potassium (3.3-5.1) mmol/L Chloride (96-108) mmol/L Carbon Dioxide (22-29) mmol/L Anion Gap (12-20) BUN (9-16) mg/dL Creatinine (0.5-1.4) mg/dL Estim Creat Clear Calc Estimated GFR Random Glucose (60-115) mg/dL Calcium (8.4-10.2) mg/dL Total Bilirubin (0.0-1.0) mg/dL AST (5-37) U/L ALT (0-40) U/L Alkaline Phosphatase (39-117) U/L Total Protein (6.5-8.0) g/dL Albumin (3.5-5.0) g/dL TSH (0.32-4.0) uIU/mL Urine Color Urine Appearance Urine pH (5.0-9.0) Ur Specific [place] (1.005-1.025) Urine Protein (Neg-Trace) mg/dL Urine Glucose (UA) (Negative) mg/dL Urine Ketones (Negative) mg/dL Urine Blood (Negative) Urine Nitrite (Negative) Ur Leukocyte Esterase (Negative) Urine RBC (0-2) /HPF Urine WBC (0-5) /HPF Ur Squamous Epith Cells (0-2) /HPF Urine Bacteria (None Seen) Hyaline Casts (0-2) /LPF Salicylates (15-30) mg/dL Urine Opiates Screen (Not Detect) Urine Fentanyl Screen (Not Detect) Acetaminophen (<30) mcg/mL Ur Barbiturates Screen (Not Detect) Ur Phencyclidine Scrn (Not Detect) Ur Amphetamines Screen (Not Detect) U Benzodiazepines Scrn (Not Detect) Urine Cocaine Screen (Not Detect) U Marijuana (THC) Screen (Not Detect) Ethyl Alcohol mg/dL COVID-19 (TARSHA) Negative (Negative) COVID-19 Clin Com See Note Independent Historian Clinical information obtained from an independent historian. History obtained from or confirmed by: EMS External Record Review External record reviewed: Inpatient record, Office record, Outpatient record, Prior outpatient labs, Prior outpatient radiology, Primary care record and Outside ED record Tests considered The following testing was considered but not selected: As above Social Determinants Patient?s care significantly limited by Social Determinants of Health including: Inadequate housing, Low income, Alcoholism and drug addiction in family and Problems related to primary support group Discharge Plan Discharge Clinical Impression: Depression with suicidal ideation, Acute facial pain [facility] Additional Instructions: Take the antibiotic twice daily for 7 days for your dental infection Take all of your other medications as prescribed Prescriptions: New amoxicillin-pot clavulanate 875-125 mg tablet 1 tab PO BID Qty: 13 0RF No Action buspirone 10 mg Tablet 30 mg PO BID cyanocobalamin (vitamin B-12) 1,000 mcg Tablet 1,000 mcg PO DAILY amlodipine 2.5 mg Tablet 5 mg PO DAILY omeprazole 20 mg Capsule,Delayed Release(Dr/Ec) 20 mg PO BEDTIME cholecalciferol (vitamin D3) 50 mcg (2,000 unit) Tablet 50 mcg PO DAILY sertraline 100 mg Tablet 200 mg PO DAILY Interventions: [place]-Suicide Risk Severity Scale Last Done: 12/31/22 13:29
--- NOTE | 2022-12-31 08:28 | PHA.MEDREC ---
Pharmacy Consult ? Medication Reconciliation Pharmacy has completed the medication reconciliation. oBTAINED list from [place]
[2022-12-31] MEDS: Cyanocobalamin (Vitamin B-12) 1,000 MCG TABLET 1000 MCG PO (10:12)
[2022-12-31] MEDS: busPIRone HCl 10 MG TABLET 30 MG PO ×2 (10:12→20:50)
[2022-12-31] MEDS: Cholecalciferol (Vitamin D3) 25 MCG TABLET 50 MCG PO (10:12)
[2022-12-31] MEDS: amLODIPine Besylate 5 MG TABLET PO (10:12)
[2022-12-31] MEDS: Sertraline HCL 100 MG TABLET 200 MG PO (10:13)
[2022-12-31 12:21] LABS: COVID-19 Test Negative (Negative); IDNOW Serial# BCCEAD1C
--- NOTE | 2022-12-31 14:44 | MHC.CARE ---
CARE Team left VM for ANNITA Akers at [facility]
[2022-12-31 15:17] VITALS: BP 174/98; PULSE 79; RESP 20; TEMP 36.7; O2SAT 97
--- NOTE | 2022-12-31 16:26 | MHC.CARE ---
CARE Team faxed assessment to ANNITA Akers
--- NOTE | 2022-12-31 17:07 | MHC.CARE ---
Patient has been accepted to the [facility] for 10p, [facility] ambulance will arrive, nurses can call when patient is on ambulance en route, Accepting MD for [facility] is Dr Daisy King.
[2022-12-31] MEDS: Amoxicillin/Potassium Clav 875 MG TABLET PO (17:48)
[2022-12-31] MEDS: Omeprazole 20 MG CAPSULE.DR PO (20:50)
== END 2022-12-31 22:24 | disposition short-term general hospital (02) ==
PROVIDERS: Physician Assistant; Emergency Provider Student in an Organized Health Care Education/Training Program
DX: R45.851 Suicidal ideations (principal); F32.A Depression, unspecified; R51.9 Headache, unspecified; Z20.822 Contact with and (suspected) exposure to COVID-19; Z79.899 Other long term (current) drug therapy
CPT/HCPCS: 36415; 80053; 80143; 80179; 80307; 81001; 84443; 85025; 87635; 93005; 99285; S9485

== ENCOUNTER → 2022-12-31 11:37 | Outpatient (BNV) | payer MEDICAID, SELFPAY | PROVIDERS: Emergency Provider Student in an Organized Health Care Education/Training Program; Visit Provider Internal Medicine Cardiovascular Disease | DX: I45.81 Long QT syndrome (principal) | CPT/HCPCS: 93010 ==

== ENCOUNTER 2023-07-02 09:27 | Emergency (ER) | payer OTHER, SELFPAY ==
--- NOTE | 2023-07-02 | ECG_ITS ---
Test Reason : PT OVER 50 Blood Pressure : / mmHG Vent. Rate : 063 BPM Atrial Rate : 063 BPM P-R Int : 148 ms QRS Dur : 094 ms QT Int : 400 ms P-R-T Axes : 006 011 004 degrees QTc Int : 409 ms Normal sinus rhythm Normal ECG When compared with ECG of 31-DEC-2022 11:37, No significant change was found Referred By: Eliot Barry Electronically Signed By:EDDY BULLARD
--- NOTE | 2023-07-02 09:31 | ED.GENADULT ---
HPI - General Adult General Chief complaint: Psychiatric Symptoms Stated complaint: SI PER EMS Time Seen by Provider: 07/02/23 09:29 Source: patient, EMS and police Mode of arrival: EMS Limitations: no limitations History of Present Illness HPI narrative: 63-year-old male history of anxiety, depression presents with suicidal ideation with intent to overdose on medications or to drink bleach, patient reports increasing life stressors as well as financial stressors. Patient reports this has happened to him in the past. He has not attempted suicide this time however. Denies visual, auditory tactile hallucinations. Denies drugs, alcohol and tobacco. Brought in by EMS and police on a [address]. Cooperative. Pleasant. Denying medical complaints Related Data Home Medications Medication Instructions Recorded Confirmed amlodipine 2.5 mg tablet 5 mg PO DAILY 03/24/22 12/31/22 buspirone 10 mg tablet 30 mg PO BID 03/24/22 12/31/22 cholecalciferol (vitamin D3) 50 50 mcg PO DAILY 03/24/22 12/31/22 mcg (2,000 unit) tablet cyanocobalamin (vitamin B-12) 1,000 mcg PO DAILY 03/24/22 12/31/22 1,000 mcg tablet omeprazole 20 mg capsule,delayed 20 mg PO BEDTIME 03/24/22 12/31/22 release sertraline 100 mg tablet 200 mg PO DAILY 12/31/22 12/31/22 Previous Rx's Medication Instructions Recorded amoxicillin 875 mg-potassium 1 tab PO BID #13 tabs 12/31/22 clavulanate 125 mg tablet Allergies Allergy/AdvReac Type Severity Reaction Status Date / Time No Known Allergies Allergy Verified 07/02/23 10:01 [No Known Allergies*] Review of Systems Review of Systems: Constitutional : No Weight loss, No Fever, No Chills, No Fatigue, No Malaise ENT/Mouth : No sore throat, No Rhinorrhea Eyes: No Eye Pain, No Swelling, No Redness Cardiovascular : No Chest Pain, No SOB, No Dyspnea on Exertion, No Orthopnea, No Edema, No Palpitations Respiratory : No Cough, No Sputum, No Wheezing Gastrointestinal : No Nausea, No Vomiting, No Diarrhea, No Constipation, No abdominal Pain, No Hematochezia, No Melena Genitourinary : No Dysuria, No Urinary Frequency, No Hematuria, Musculoskeletal : No joint pain, No Myalgias, No Joint Swelling Skin : No Skin Lesions, No rash Neuro : No Weakness, No Numbness, No Dizziness, No Headache Psych : + Anxiety/Panic, + Depression, + SI, NO HI All other systems reviewed and are negative Yes all other systems are reviewed and are negative [facility] Past Medical History Attestation statement: The following information was validated with the patient. Source: old records reviewed and nursing notes reviewed Onset Date is defined in the Problem List Problems that require an onset date and time if occurred within 24 hrs of arrival to the ED Aortic Dissection and Rupture; Neurologic impairment; Cardiopulmonary Arrest; Endotracheal Intubation; Insertion or Replacement of Mechanical Circulatory Assist Device Social History Social History Alcohol intake: former Advance Directives: No Advance Directives Information Provided: No Physical Exam ED Vital Signs: Vital Signs - 24 hr 07/02/23 09:49 Temperature 98.8 F Pulse Rate 84 Respiratory Rate 18 Blood Pressure 180/107 H Pulse Oximetry 97 Oxygen Delivery Method Room Air BMI result Body Mass Index 35.4 vss Appearance: Alert.? Oriented X3.? No acute distress.? Head: Normocephalic, atraumatic, no step-offs or deformities Eyes: Pupils equal, round and reactive to light.? Neck: Normal inspection.? Neck supple.? CVS: Normal heart rate and rhythm.? Pulses normal.? Respiratory: No respiratory distress.? Breath sounds normal.? Abdomen: Soft and nontender.? Skin: Skin warm and dry.? Normal skin color.? Normal skin turgor.? Extremities: No lower extremity edema.? No calf ttp. 5/5 strength to bilateral upper and lower extremities Neuro: Oriented X 3.? No motor deficit.? No sensory deficit. CN 2-12 intact Course Reevaluation(s) Reevaluation #1: Patient's CBC with leukopenia this is likely nonspecific, unlikely infectious in origin. Chemistry no acute findings requiring intervention. UA without infection. Urine toxicology negative. Ethanol negative. Patient's COVID negative. This time patient to be placed into observation to allow more time to be evaluated by behavioral health team. At time observation started patient common cooperative no acute distress will continue to monitor Time: 11:06 Medical Decision Making Medical Decision Making MDM Narrative: 63-year-old male presents with anxiety, depression and suicidal ideation for the past few days worsening. Reports increasing life stressors Physical exam benign very pleasant man History and physical exam consistent with anxiety, depression possible PTSD with subsequent suicidal ideation. Unlikely metabolic derangements. I do not suspect acute psychosis. Plan medical clearance evaluation by behavioral health team Differential Diagnosis Differential Diagnoses: The differential diagnosis associated with the presentation includes History and physical exam consistent with anxiety, depression possible PTSD with subsequent suicidal ideation. Unlikely metabolic derangements. I do not suspect acute psychosis. Admission/Observation Consideration of admission/observation: Escalation of care including admission/observation considered possible Lab Data MDM Lab Attestation statement: I reviewed the patient's lab results. 07/02/23 10:26 07/02/23 10:26 Labs: Lab Results 07/02/23 07/02/23 Range/Units 10:21 10:26 WBC 4.6 L (4.8-10.8) X10*3/uL RBC 4.83 (4.60-5.80) X10*6/uL Hgb 15.5 (14.0-18.0) g/dl Hct 45.1 (42.0-52.0) % MCV 93.4 (80.0-98.0) fL MCH 32.1 (27.0-33.0) pg MCHC 34.4 (31.0-36.0) g/dl RDW 14.6 (11.0-16.0) % Plt Count 148 L (160-400) X10*3/uL MPV 11.6 (9.4-12.4) fL Immature Gran % (Auto) 0.4 (0.0-0.4) % Neut % (Auto) 72.7 (45-73) % Lymph % (Auto) 15.3 L (20-40) % [place] % (Auto) 8.5 (2-11) % Eos % (Auto) 2.2 (0-4) % Baso % (Auto) 0.9 (0-2) % Lymph # (Auto) 0.7 L (1.2-4.9) X10*3/uL [place] # (Auto) 0.4 (0.1-1.2) X10*3/uL Eos # (Auto) 0.1 (0.0-0.4) X10*3/uL Baso # (Auto) 0.0 (0.0-0.2) X10*3/uL Abs Immat Gran (auto) 0.02 (0.00-0.03) X10*3/uL Absolute Neuts (auto) 3.3 (2.0-8.3) x10*3/uL Absolute Nucleated RBC 0.000 (0.0-0.012) X10*3/uL Nucleated RBC % (auto) 0.0 (0.0-0.2) /100WBC Sodium 140 (135-145) mmol/L Potassium 4.1 (3.3-5.1) mmol/L Chloride 104 (96-108) mmol/L Carbon Dioxide 29 (22-29) mmol/L Anion Gap 11 L (12-20) BUN 14 (9-16) mg/dL Creatinine 1.24 (0.5-1.4) mg/dL Estim Creat Clear Calc 82.2 Estimated GFR 59 Random Glucose 109 (60-115) mg/dL Calcium 9.1 (8.4-10.2) mg/dL Magnesium 2.1 (1.6-2.6) mg/dL Total Bilirubin 0.6 (0.0-1.0) mg/dL AST 16 (5-37) U/L ALT 13 (0-40) U/L Alkaline Phosphatase 75 (39-117) U/L Total Protein 7.5 (6.5-8.0) g/dL Albumin 4.2 (3.5-5.0) g/dL Urine Color Yellow Urine Appearance Clear Urine pH 5.5 (5.0-9.0) Ur Specific [place] 1.025 (1.005-1.025) Urine Protein Negative (Neg-Trace) mg/dL Urine Glucose (UA) Negative (Negative) mg/dL Urine Ketones Negative (Negative) mg/dL Urine Blood Negative (Negative) Urine Nitrite Negative (Negative) Ur Leukocyte Esterase Negative (Negative) Urine Opiates Screen Not Detected (Not Detect) Urine Fentanyl Screen Not Detected (Not Detect) Ur Barbiturates Screen Not Detected (Not Detect) Ur Phencyclidine Scrn Not Detected (Not Detect) Ur Amphetamines Screen Not Detected (Not Detect) U Benzodiazepines Scrn Not Detected (Not Detect) Urine Cocaine Screen Not Detected (Not Detect) U Marijuana (THC) Screen Not Detected (Not Detect) Ethyl Alcohol < 10 mg/dL COVID-19 (TARSHA) Negative (Negative) COVID-19 Clin Com See Note Chronic Conditions Patient?s care impacted by: Other (anxiety, depression ) Discharge Plan Discharge Clinical Impression: Depression, Anxiety, Suicide ideation Patient Disposition: Still a Patient Prescriptions: No Action buspirone 10 mg Tablet 30 mg PO BID cyanocobalamin (vitamin B-12) 1,000 mcg Tablet 1,000 mcg PO DAILY amlodipine 2.5 mg Tablet 5 mg PO DAILY omeprazole 20 mg Capsule,Delayed Release(Dr/Ec) 20 mg PO BEDTIME cholecalciferol (vitamin D3) 50 mcg (2,000 unit) Tablet 50 mcg PO DAILY sertraline 100 mg Tablet 200 mg PO DAILY amoxicillin-pot clavulanate 875-125 mg tablet 1 tab PO BID Qty: 13 0RF Interventions: [place]-Suicide Risk Severity Scale Last Done: 07/02/23 10:01
[2023-07-02 09:49] VITALS: BP 180/107; BP 200/120; PULSE 84; PULSE 86; RESP 18; TEMP 37.1; O2SAT 97; O2SAT 98; BMI 35.4
[2023-07-02 10:31] LABS: MANUAL DIFF FLAG NO
[2023-07-02 10:32] LABS: Basophils Percent Auto 0.9 % (0-2); Eosinophils Absolute Auto 0.1 X10*3/uL (0.0-0.4); Eosinophils Percent Auto 2.2 % (0-4); Hematocrit 45.1 % (42.0-52.0); Hemoglobin 15.5 g/dl (14.0-18.0); Imm Gran Abs Auto 0.02 X10*3/uL (0.00-0.03); Imm Gran Pct Auto 0.4 % (0.0-0.4); Lymphocytes Absolute Auto 0.7 X10*3/uL (1.2-4.9); Lymphocytes Percent Auto 15.3 % (20-40); Mean Corpuscular HGB Conc 34.4 g/dl (31.0-36.0); Mean Corpuscular Hemoglobin 32.1 pg (27.0-33.0); Mean Corpuscular Volume 93.4 fL (80.0-98.0); Mean Platelet Volume 11.6 fL (9.4-12.4); Monocytes Absolute Auto 0.4 X10*3/uL (0.1-1.2); Monocytes Percent Auto 8.5 % (2-11); Neutrophils Absolute Auto 3.3 x10*3/uL (2.0-8.3); Neutrophils Percent Auto 72.7 % (45-73); Platelet Count 148 X10*3/uL (160-400); Red Blood Count 4.83 X10*6/uL (4.60-5.80); Red Cell Distribution Width 14.6 % (11.0-16.0); White Blood Count 4.6 X10*3/uL (4.8-10.8)
[2023-07-02 10:33] LABS: Appearance Urine Clear; Color Urine Yellow; Glucose Urine UA Negative (Negative); Leukocyte Esterase Urine Negative (Negative); Nitrite Urine Negative (Negative); PH 5.5 (5.0-9.0); Specific Gravity - Urine 1.025 (1.005-1.025); Urine Blood Negative (Negative); Urine Ketones Negative (Negative); Urine Protein Negative (Neg-Trace)
[2023-07-02 10:39] LABS: Amphetamine Screen Urine Not Detected (Not Detect); Barbiturates, Urine Not Detected (Not Detect); Benzodiazepines Screen Urine Not Detected (Not Detect); Cannabinoid Screen Urine Not Detected (Not Detect); Cocaine Screen Urine Not Detected (Not Detect); Fentanyl, urine Not Detected (Not Detect); Opiate Screen Urine Not Detected (Not Detect); Phencyclidine Screen Urine Not Detected (Not Detect)
[2023-07-02 10:44] LABS: COVID-19 Test Negative (Negative); IDNOW Serial# 08D9AD1C
[2023-07-02 10:45] LABS: Alanine Aminotransferase 13 U/L (0-40); Albumin Level 4.2 g/dL (3.5-5.0); Alkaline Phosphatase 75 U/L (39-117); Anion Gap 11 (12-20); Aspartate Amino Transferase 16 U/L (5-37); Bilirubin Total 0.6 mg/dL (0.0-1.0); Blood Urea Nitrogen 14 mg/dL (9-16); Calcium 9.1 mg/dL (8.4-10.2); Carbon Dioxide 29 mmol/L (22-29); Chloride 104 mmol/L (96-108); Creatinine Clr Calc Pharmacy 82.2; Estimated Glomerular Filt Rate 59; Glucose Random 109 mg/dL (60-115); Magnesium 2.1 mg/dL (1.6-2.6); Potassium 4.1 mmol/L (3.3-5.1); Sodium 140 mmol/L (135-145); Total Protein 7.5 g/dL (6.5-8.0)
[2023-07-02 10:46] LABS: Ethanol < 10 mg/dL
[2023-07-02 11:30] VITALS: RESP 14
--- NOTE | 2023-07-02 11:33 | PC.NURSE ---
Assumed care of patient at 1100, patient resting on stretcher speaking with CARE team at this time. Respirations even and unlabored, no apparent distress
[2023-07-02 14:11] VITALS: RESP 14
--- NOTE | 2023-07-02 16:37 | PC.NURSE ---
[facility] [place] [facility] taking Wellbutrin 150 mg PO once daily. Per the pharmacist, patient last had it delivered to his house on May 26 for a 30 day supply
--- NOTE | 2023-07-02 18:54 | MHC.CARE ---
Tw conducted a statewide a statewide bed search for this pt. Referral was sent to [facility], [facility] and [place]. Bed search is exhausted and will continue tomorrow (07/03)
--- NOTE | 2023-07-02 19:14 | PC.NURSE ---
patient appears to remain at rest at present respirations are even and unlabored patient appears in no distress.
[2023-07-02 20:53] VITALS: BP 170/90; PULSE 60; RESP 18; TEMP 36.6; O2SAT 98
[2023-07-03 04:46] VITALS: BP 164/87; PULSE 62; RESP 17; TEMP 36.5; O2SAT 97
[2023-07-03] MEDS: Acetaminophen 325 MG TABLET 975 MG PO (04:54)
--- NOTE | 2023-07-03 05:59 | PC.NURSE ---
patient appears to be looking around his room in the relative darkness
[2023-07-03 10:17] LABS: Influenza A PCR NEGATIVE (Negative); Influenza B PCR NEGATIVE (Negative); Resp Syncy Virus RNA Qual PCR NEGATIVE (Negative); SARS COV2 PCR INHOUSE NEGATIVE (Negative)
[2023-07-03 12:34] VITALS: RESP 18
[2023-07-03 14:14] VITALS: BP 149/81; PULSE 62; RESP 18; TEMP 36.3; O2SAT 97
[2023-07-03 15:44] VITALS: BP 157/87; PULSE 61; RESP 16; TEMP 36.1; O2SAT 99
--- NOTE | 2023-07-03 17:53 | MHC.CARE ---
Pt was accepted to [facility] for 07/03/23
--- NOTE | 2023-07-03 17:54 | PC.NURSE ---
Observed pacing in room, pleasant and cooperative. No behavioral concerns at this time. Patient awaiting transfer to [place] in [place].
== END 2023-07-03 18:16 ==
PROVIDERS: Emergency Medicine; Physician Assistant; Emergency Provider Emergency Medicine; PCP Family Medicine
DX: F33.1 Major depressive disorder, recurrent, moderate (principal); R45.851 Suicidal ideations; F41.9 Anxiety disorder, unspecified; F43.9 Reaction to severe stress, unspecified; Z79.899 Other long term (current) drug therapy; Z11.52 Encounter for screening for COVID-19; Z20.828 Contact with and (suspected) exposure to other viral communicable diseases
CPT/HCPCS: 0241U; 36415; 80053; 80307; 81003; 83735; 85025; 87635; 93005; 99285; S9485

== ENCOUNTER → 2023-07-02 14:17 | Outpatient (BNV) | payer OTHER, SELFPAY | PROVIDERS: Emergency Provider Emergency Medicine; PCP Family Medicine; Visit Provider Internal Medicine | DX: R45.851 Suicidal ideations (principal) | CPT/HCPCS: 93010 ==

== ENCOUNTER 2023-09-05 08:30 | Emergency (ER) | payer OTHER, SELFPAY ==
[2023-09-05 08:39] VITALS: BP 187/103; BP 208/140; PULSE 102; PULSE 91; RESP 20; O2SAT 96; O2SAT 99; BMI 38.3
[2023-09-05 08:45] VITALS: TEMP 35.9
--- NOTE | 2023-09-05 08:49 | ED_ITS ---
HPI - Psych General Chief Complaint: Psychiatric Symptoms Stated Complaint: SI ATTEMPT Time Seen by Provider: 09/05/23 08:46 Source: patient and EMS Mode of arrival: EMS Limitations: no limitations History of Present Illness HPI Narrative: 63-year-old male history of anxiety, depression presents status post suicide attempt earlier today, patient reports just prior to arrival he took 10 100 mg sertraline, he took them at around 08:00, he reports after doing this he had nausea, vomiting and immediately regret his decision. He reports he took them in hopes to end his life he was feeling very overwhelmed. He reports he has been having anxiety and depression that have been worsening over the past few days unclear exactly what has been making them worse. He reports he takes psych meds and he is taking them as prescribed. Denies hallucinations. Denies drugs, alcohol and tobacco. No medical complaints at this time. Tells me he is no longer feeling suicidal he is definitely anxious and depressed. Poison control immediately called by nursing Related Data Home Medications Medication Instructions Recorded Confirmed amlodipine 2.5 mg tablet 5 mg PO DAILY 03/24/22 09/05/23 buspirone 10 mg tablet 30 mg PO BID 03/24/22 09/05/23 cholecalciferol (vitamin D3) 50 50 mcg PO DAILY 03/24/22 09/05/23 mcg (2,000 unit) tablet cyanocobalamin (vitamin B-12) 1,000 mcg PO DAILY 03/24/22 09/05/23 1,000 mcg tablet omeprazole 20 mg capsule,delayed 20 mg PO BEDTIME 03/24/22 09/05/23 release sertraline 100 mg tablet 200 mg PO DAILY 12/31/22 09/05/23 bupropion HCl 75 mg tablet 200 mg PO DAILY 07/02/23 09/05/23 trazodone 50 mg tablet 50 mg PO BEDTIME PRN Insomnia 09/05/23 Allergies Allergy/AdvReac Type Severity Reaction Status Date / Time No Known Allergies Allergy Verified 09/05/23 16:41 [No Known Allergies*] Review of Systems 2 Review of Systems: Yes all other systems are reviewed and are negative PMFSH Past Medical History Attestation statement: The following information was validated with the patient. Source: old records reviewed and nursing notes reviewed Social History Social History Alcohol intake: former Smoked in Last 30 Days: Yes Use of substances other than those prescribed or required for medical reasons: No Advance Directives: No Advance Directives Information Provided: No Physical Exam 2 Vital Signs: Vital Signs: Last Vital Signs Temp 98.1 F 09/05/23 20:13 Pulse 80 09/05/23 20:13 Resp 16 09/06/23 06:37 BP 158/86 H 09/05/23 20:13 Pulse Ox 95 09/05/23 20:13 O2 Del Method Room Air 09/05/23 20:13 BMI result Body Mass Index 38.3 Hypertension likely secondary to anxiety. Will repeat at a later time. Appearance: Alert.? Oriented X3.? No acute distress.? Head: Normocephalic, atraumatic, no step-offs or deformities Eyes: Pupils equal, round and reactive to light.? ENT: Pharynx normal.? Neck: Normal inspection.? Neck supple.? CVS: Normal heart rate and rhythm.? Pulses normal.? Respiratory: No respiratory distress.? Breath sounds normal.? Abdomen: Soft and nontender.? Skin: Skin warm and dry.? Normal skin color.? Normal skin turgor.? Extremities: No lower extremity edema.? No calf ttp. 5/5 strength to bilateral upper and lower extremities Neuro: Oriented X 3.? No motor deficit.? No sensory deficit. CN 2-12 intact Course Reevaluation(s) Reevaluation #1: CBC unremarkable. Chemistry no acute findings. Salicylates, acetaminophen negative. Ethanol negative. Patient complaining of nausea at this time. Nursing did reach out to poison control recommendations can be found in the nursing portion of the chart. Will continue to monitor patient. Time: 09:59 Reevaluation #2: At this time patient to be placed into observation to allow more time to be evaluated by behavioral health team. Patient remains well, vital signs stable. Will continue to monitor Time: 12:35 Time: 07:06 Additional Reevaluation(s): Physician observation continued. VS stable, no acute events overnight, S12 [place] bedsearch overdose was 24 hours ago he is medically cleared from poison control point of view no further interventions needed. Medications Administered Generic Name Dose Route Start Last Admin Trade Name Freq PRN Reason Stop Dose Admin Buspirone HCl 30 mg 09/05/23 21:00 09/05/23 20:18 Buspirone Hcl 10 Mg Tablet PO 30 mg BID TRAVIS Administration Omeprazole 20 mg 09/05/23 21:00 09/05/23 20:18 Omeprazole 20 Mg Capsule. PO 20 mg BEDTIME TRAVIS Administration Medical Decision Making Medical Decision Making [facility] Narrative: 63-year-old male presents status post suicide attempt by overdose at 08:00 this morning took 10, 100 mg sertraline. Physical exam benign. Patient with a one-to-one at the bedside. Concerns for suicide attempt with anxiety, depression. Will rule out metabolic derangements. No medical complaints however. Will also rule out acute alcohol intoxication and polysubstance abuse. Plan at this time medical clearance evaluation by behavioral health team. Safety precautions in place Differential Diagnosis Differential Diagnoses: The differential diagnosis associated with the presentation includes Concerns for suicide attempt with anxiety, depression. Will rule out metabolic derangements. No medical complaints however. Will also rule out acute alcohol intoxication and polysubstance abuse. Admission/Observation Consideration of admission/observation: Escalation of care including admission/observation considered likely psych Consult Healthcare Provider Management of the patient was discussed with: Clarifier Operator Helper (Poison control) Lab Data [facility] Lab Attestation statement: I reviewed the patient's lab results. 09/05/23 09:07 09/05/23 09:07 Labs: Lab Results 09/05/23 09/05/23 09/05/23 Range/Units 09:07 12:09 16:08 WBC 6.2 (4.8-10.8) X10*3/uL RBC 4.55 L (4.60-5.80) X10*6/uL Hgb 14.8 (14.0-18.0) g/dl Hct 42.2 (42.0-52.0) % MCV 92.7 (80.0-98.0) fL MCH 32.5 (27.0-33.0) pg MCHC 35.1 (31.0-36.0) g/dl RDW 13.9 (11.0-16.0) % Plt Count 137 L (160-400) X10*3/uL MPV 12.2 (9.4-12.4) fL Immature Gran % (Auto) 0.6 H (0.0-0.4) % Neut % (Auto) 66.3 (45-73) % Lymph % (Auto) 19.3 L (20-40) % [place] % (Auto) 9.6 (2-11) % Eos % (Auto) 3.4 (0-4) % Baso % (Auto) 0.8 (0-2) % Lymph # (Auto) 1.2 (1.2-4.9) X10*3/uL [place] # (Auto) 0.6 (0.1-1.2) X10*3/uL Eos # (Auto) 0.2 (0.0-0.4) X10*3/uL Baso # (Auto) 0.1 (0.0-0.2) X10*3/uL Abs Immat Gran (auto) 0.04 H (0.00-0.03) X10*3/uL Absolute Neuts (auto) 4.1 (2.0-8.3) x10*3/uL Absolute Nucleated RBC 0.000 (0.0-0.012) X10*3/uL Nucleated RBC % (auto) 0.0 (0.0-0.2) /100WBC Sodium 142 (135-145) mmol/L Potassium 3.3 (3.3-5.1) mmol/L Chloride 109 H (96-108) mmol/L Carbon Dioxide 26 (22-29) mmol/L Anion Gap 10 L (12-20) BUN 15 (9-16) mg/dL Creatinine 1.20 (0.5-1.4) mg/dL Estim Creat Clear Calc 88.5 Estimated GFR > 60 Random Glucose 119 H (60-115) mg/dL Calcium 9.0 (8.4-10.2) mg/dL Magnesium 1.8 (1.6-2.6) mg/dL Total Bilirubin 0.7 (0.0-1.0) mg/dL AST 22 (5-37) U/L ALT 19 (0-40) U/L Alkaline Phosphatase 70 (39-117) U/L Total Creatine Kinase 45 (38-174) U/L Total Protein 7.3 (6.5-8.0) g/dL Albumin 4.0 (3.5-5.0) g/dL Urine Color Yellow Urine Appearance Clear Urine pH 7.0 (5.0-9.0) Ur Specific [place] 1.025 (1.005-1.025) Urine Protein Negative (Neg-Trace) mg/dL Urine Glucose (UA) Negative (Negative) mg/dL Urine Ketones Negative (Negative) mg/dL Urine Blood Negative (Negative) Urine Nitrite Negative (Negative) Ur Leukocyte Esterase Negative (Negative) Salicylates < 5.0 L (15-30) mg/dL Urine Opiates Screen Not Detected (Not Detect) Urine Fentanyl Screen Not Detected (Not Detect) Acetaminophen < 3 (<30) mcg/mL Ur Barbiturates Screen Not Detected (Not Detect) Ur Phencyclidine Scrn Not Detected (Not Detect) Ur Amphetamines Screen Not Detected (Not Detect) U Benzodiazepines Scrn Not Detected (Not Detect) Urine Cocaine Screen Not Detected (Not Detect) U Marijuana (THC) Screen Not Detected (Not Detect) Ethyl Alcohol < 10 mg/dL Influenza Type A (PCR) NEGATIVE (Negative) Influenza Type B (PCR) NEGATIVE (Negative) RSV RNA Qual (PCR) NEGATIVE (Negative) SARS-CoV-2 RNA (RT-PCR) NEGATIVE (Negative) External Record Review External record reviewed: Inpatient record, Office record, Outpatient record and Prior outpatient labs Chronic Conditions Patient?s care impacted by: Other (Anxiety, depression, obesity) Critical Care Time Critical Care Time Critical Care Time: Yes Total Critical Care Time: 35 Attestation: I attest to this time spent taking care of the patient, obtaining history, physical, reviewing labs, imaging, speaking to my attending, speaking to specialist. Discharge Plan Discharge Clinical Impression: Suicide attempt Patient Disposition: Still a Patient Prescriptions: No Action buspirone 10 mg Tablet 30 mg PO BID cyanocobalamin (vitamin B-12) 1,000 mcg Tablet 1,000 mcg PO DAILY amlodipine 2.5 mg Tablet 5 mg PO DAILY omeprazole 20 mg Capsule,Delayed Release(Dr/Ec) 20 mg PO BEDTIME cholecalciferol (vitamin D3) 50 mcg (2,000 unit) Tablet 50 mcg PO DAILY sertraline 100 mg Tablet 200 mg PO DAILY bupropion HCl [Wellbutrin] 75 mg Tablet 200 mg PO DAILY trazodone 50 mg Tablet 50 mg PO BEDTIME PRN (Reason: Insomnia) Interventions: Dickenson-Suicide Risk Severity Scale Last Done: 09/06/23 07:11
--- NOTE | 2023-09-05 08:49 | ECG_ITS ---
Test Reason : med overdose Blood Pressure : / mmHG Vent. Rate : 075 BPM Atrial Rate : 075 BPM P-R Int : 158 ms QRS Dur : 090 ms QT Int : 382 ms P-R-T Axes : 020 004 001 degrees QTc Int : 426 ms Normal sinus rhythm Normal ECG When compared with ECG of 02-JUL-2023 14:17, No significant change was found Referred By: Blaire Montemayor Electronically Signed By:EDDY BULLARD
[2023-09-05 09:16] LABS: MANUAL DIFF FLAG NO
[2023-09-05 09:17] LABS: Basophils Absolute Auto 0.1 X10*3/uL (0.0-0.2); Basophils Percent Auto 0.8 % (0-2); Eosinophils Absolute Auto 0.2 X10*3/uL (0.0-0.4); Eosinophils Percent Auto 3.4 % (0-4); Hematocrit 42.2 % (42.0-52.0); Hemoglobin 14.8 g/dl (14.0-18.0); Imm Gran Abs Auto 0.04 X10*3/uL (0.00-0.03); Imm Gran Pct Auto 0.6 % (0.0-0.4); Lymphocytes Absolute Auto 1.2 X10*3/uL (1.2-4.9); Lymphocytes Percent Auto 19.3 % (20-40); Mean Corpuscular HGB Conc 35.1 g/dl (31.0-36.0); Mean Corpuscular Hemoglobin 32.5 pg (27.0-33.0); Mean Corpuscular Volume 92.7 fL (80.0-98.0); Mean Platelet Volume 12.2 fL (9.4-12.4); Monocytes Absolute Auto 0.6 X10*3/uL (0.1-1.2); Monocytes Percent Auto 9.6 % (2-11); Neutrophils Absolute Auto 4.1 x10*3/uL (2.0-8.3); Neutrophils Percent Auto 66.3 % (45-73); Platelet Count 137 X10*3/uL (160-400); Red Blood Count 4.55 X10*6/uL (4.60-5.80); Red Cell Distribution Width 13.9 % (11.0-16.0); White Blood Count 6.2 X10*3/uL (4.8-10.8)
--- NOTE | 2023-09-05 09:30 | PC.NURSE ---
Pt is coming from home via EMS, reports he took 1000 mg of Zoloft (10, 100 mg) this morning at 8AM as SI attempt. Pt is alert and oriented, breathing even and unlabored, skin WNL. Pt reports only complaint of upset stomach . Pt denies any CP, SOB, dizziness, vomiting. Pt is calm and cooperative. 1:1 sitter at bedside. Pt is on sdet, NSR.
--- NOTE | 2023-09-05 09:32 | PC.NURSE ---
Poison Control Contacted by this RN, recommendations as follows: Monitor for anticholinergic symptoms- any changes in mental status. Labs every 4 hours, BMP. ECGs every 2 hours for a total of 3, if all stable then continue with every 4-6 hours. Benzos for any seizures. Supportive care. Provider aware.
[2023-09-05 09:40] LABS: Acetaminophen LAB < 3 mcg/mL (<30); Salicylate < 5.0 mg/dL (15-30)
[2023-09-05 09:48] LABS: Alanine Aminotransferase 19 U/L (0-40); Alkaline Phosphatase 70 U/L (39-117); Anion Gap 10 (12-20); Aspartate Amino Transferase 22 U/L (5-37); Bilirubin Total 0.7 mg/dL (0.0-1.0); Blood Urea Nitrogen 15 mg/dL (9-16); Carbon Dioxide 26 mmol/L (22-29); Chloride 109 mmol/L (96-108); Creatinine Clr Calc Pharmacy 88.5; Estimated Glomerular Filt Rate > 60; Ethanol < 10 mg/dL; Glucose Random 119 mg/dL (60-115); Magnesium 1.8 mg/dL (1.6-2.6); Potassium 3.3 mmol/L (3.3-5.1); Sodium 142 mmol/L (135-145); Total Protein 7.3 g/dL (6.5-8.0)
--- NOTE | 2023-09-05 10:05 | PC.NURSE ---
Pt did have one small episode of vomiting, liquid noted. Provider aware.
--- NOTE | 2023-09-05 10:20 | ECG_ITS ---
Test Reason : OD Blood Pressure : / mmHG Vent. Rate : 061 BPM Atrial Rate : 061 BPM P-R Int : 170 ms QRS Dur : 096 ms QT Int : 420 ms P-R-T Axes : 024 008 008 degrees QTc Int : 422 ms Normal sinus rhythm Normal ECG When compared with ECG of 05-SEP-2023 09:05, No significant change was found Referred By: Blaire Montemayor Electronically Signed By:EDDY BULLARD
[2023-09-05 10:34] VITALS: BP 165/81; PULSE 59; RESP 16; TEMP 36.6; O2SAT 96
[2023-09-05 12:19] LABS: Appearance Urine Clear; Color Urine Yellow; Glucose Urine UA Negative (Negative); Leukocyte Esterase Urine Negative (Negative); Nitrite Urine Negative (Negative); Specific Gravity - Urine 1.025 (1.005-1.025); Urine Blood Negative (Negative); Urine Ketones Negative (Negative); Urine Protein Negative (Neg-Trace)
[2023-09-05 12:28] LABS: Amphetamine Screen Urine Not Detected (Not Detect); Barbiturates, Urine Not Detected (Not Detect); Benzodiazepines Screen Urine Not Detected (Not Detect); Cannabinoid Screen Urine Not Detected (Not Detect); Cocaine Screen Urine Not Detected (Not Detect); Fentanyl, urine Not Detected (Not Detect); Opiate Screen Urine Not Detected (Not Detect); Phencyclidine Screen Urine Not Detected (Not Detect)
--- NOTE | 2023-09-05 12:32 | ECG_ITS ---
Test Reason : REPEAT OD Blood Pressure : / mmHG Vent. Rate : 076 BPM Atrial Rate : 076 BPM P-R Int : 172 ms QRS Dur : 092 ms QT Int : 404 ms P-R-T Axes : 041 005 012 degrees QTc Int : 454 ms Normal sinus rhythm Normal ECG When compared with ECG of 05-SEP-2023 11:01, No significant change was found Referred By: Blaire Montemayor Electronically Signed By:EDDY BULLARD
[2023-09-05 12:58] VITALS: BP 144/80; PULSE 78; RESP 18; TEMP 36.6; O2SAT 97
[2023-09-05 14:35] VITALS: BP 156/86; PULSE 74; RESP 16; O2SAT 93
--- NOTE | 2023-09-05 15:49 | MHC.CARE ---
CARE Team evaluation complete. Pt is a [place] inpatient bedsearch. Pt is on a section 12A for safety. Pt and ED provider are aware of disposition.
[2023-09-05 17:01] LABS: Influenza A PCR NEGATIVE (Negative); Influenza B PCR NEGATIVE (Negative); Resp Syncy Virus RNA Qual PCR NEGATIVE (Negative); SARS COV2 PCR INHOUSE NEGATIVE (Negative)
--- NOTE | 2023-09-05 18:19 | PC.NURSE ---
Patient brought to pod, calm and cooperative in no apparent distress. Patient endorses SI with plan to overdose on his prescription medications. This RN has had patient for previous SI thoughts in the past. Patient offers no complaints at this time, respirations even and unlabored. Continue plan of care for inpatient bedsearch within the [place]
--- NOTE | 2023-09-05 18:58 | MHC.CARE ---
CARE Team received a call from the [facility] where pt was referred for psychiatric inpt admission. Per [place] staff, Stephen, their provider reviewed pt's medical and does not feel the pt is medically cleared due to poison control recommendations. They advise the CARE Team that pt should be re-referred tomorrow, and they will likely accommodate him.
--- NOTE | 2023-09-05 19:29 | PC.NURSE ---
patient appears to remain at rest at present respirations are even and unlabored patient appears in no distress.
[2023-09-05 20:13] VITALS: BP 158/86; PULSE 80; RESP 18; TEMP 36.7; O2SAT 95
[2023-09-05] MEDS: Omeprazole 20 MG CAPSULE.DR PO (20:18)
[2023-09-05] MEDS: busPIRone HCl 10 MG TABLET 30 MG PO (20:18)
[2023-09-06 06:37] VITALS: RESP 16
--- NOTE | 2023-09-06 07:10 | PC.NURSE ---
Assumed care of patient 0645, patient is up eating breakfast at desk at this time, respirations even and unlabored, no apparent distress noted. Pt continues to endorse SI, offers no complaints to this RN. Continue plan of care for inpatient bedsearch (within the [place] system)
[2023-09-06] MEDS: amLODIPine Besylate 5 MG TABLET PO (08:23)
[2023-09-06] MEDS: Cholecalciferol (Vitamin D3) 25 MCG TABLET 50 MCG PO (08:23)
[2023-09-06] MEDS: buPROPion HCL 100 MG TABLET 200 MG PO (08:23)
[2023-09-06] MEDS: Cyanocobalamin (Vitamin B-12) 1,000 MCG TABLET 1000 MCG PO (08:23)
[2023-09-06] MEDS: Sertraline HCL 100 MG TABLET 200 MG PO (08:23)
[2023-09-06] MEDS: busPIRone HCl 10 MG TABLET 30 MG PO (08:23)
[2023-09-06 11:30] LABS: MANUAL DIFF FLAG NO
[2023-09-06 11:33] LABS: Basophils Percent Auto 0.4 % (0-2); Eosinophils Absolute Auto 0.1 X10*3/uL (0.0-0.4); Eosinophils Percent Auto 1.6 % (0-4); Hematocrit 41.3 % (42.0-52.0); Hemoglobin 14.3 g/dl (14.0-18.0); Imm Gran Abs Auto 0.02 X10*3/uL (0.00-0.03); Imm Gran Pct Auto 0.3 % (0.0-0.4); Lymphocytes Absolute Auto 1.1 X10*3/uL (1.2-4.9); Lymphocytes Percent Auto 15.2 % (20-40); Mean Corpuscular HGB Conc 34.6 g/dl (31.0-36.0); Mean Corpuscular Hemoglobin 32.3 pg (27.0-33.0); Mean Corpuscular Volume 93.2 fL (80.0-98.0); Mean Platelet Volume 12.8 fL (9.4-12.4); Monocytes Absolute Auto 0.6 X10*3/uL (0.1-1.2); Monocytes Percent Auto 8.9 % (2-11); Neutrophils Absolute Auto 5.1 x10*3/uL (2.0-8.3); Neutrophils Percent Auto 73.6 % (45-73); Platelet Count 140 X10*3/uL (160-400); Red Blood Count 4.43 X10*6/uL (4.60-5.80); White Blood Count 6.9 X10*3/uL (4.8-10.8)
[2023-09-06 11:47] LABS: Alanine Aminotransferase 17 U/L (0-40); Albumin Level 3.6 g/dL (3.5-5.0); Alkaline Phosphatase 59 U/L (39-117); Anion Gap 11 (12-20); Aspartate Amino Transferase 17 U/L (5-37); Bilirubin Direct 0.3 mg/dL (0.0-0.5); Bilirubin Total 0.7 mg/dL (0.0-1.0); Blood Urea Nitrogen 15 mg/dL (9-16); Calcium 9.2 mg/dL (8.4-10.2); Carbon Dioxide 24 mmol/L (22-29); Chloride 108 mmol/L (96-108); Creatinine Clr Calc Pharmacy 100.1; Estimated Glomerular Filt Rate > 60; Glucose Random 99 mg/dL (60-115); Lipase 16 U/L (8-78); Potassium 3.6 mmol/L (3.3-5.1); Sodium 139 mmol/L (135-145); Total Protein 6.4 g/dL (6.5-8.0)
[2023-09-06 12:27] LABS: Appearance Urine Clear; Color Urine Yellow; Glucose Urine UA Negative (Negative); Leukocyte Esterase Urine Negative (Negative); Nitrite Urine Negative (Negative); Urine Blood Negative (Negative); Urine Ketones Negative (Negative); Urine Protein Negative (Neg-Trace)
[2023-09-06 12:34] LABS: Amphetamine Screen Urine Not Detected (Not Detect); Barbiturates, Urine Not Detected (Not Detect); Benzodiazepines Screen Urine Not Detected (Not Detect); Cannabinoid Screen Urine Not Detected (Not Detect); Cocaine Screen Urine Not Detected (Not Detect); Fentanyl, urine Not Detected (Not Detect); Opiate Screen Urine Not Detected (Not Detect); Phencyclidine Screen Urine Not Detected (Not Detect)
[2023-09-06 16:19] VITALS: BP 130/69; PULSE 59; RESP 18; TEMP 36.6; O2SAT 96
--- NOTE | 2023-09-06 17:43 | MHC.CARE ---
Per Celina @ [facility] pt is accepted for tonight 09/06/23, ambulance transport will arrive in 20 min for pickup
--- NOTE | 2023-09-06 17:51 | PC.NURSE ---
received call from daphne Wilcox. Patient accepted at the [place], ambulance on the way. Pt aware of plan at this time
[2023-09-06 18:13] VITALS: BP 129/90; PULSE 72; RESP 16; TEMP 36.3; O2SAT 98
== END 2023-09-06 18:14 ==
PROVIDERS: Physician Assistant; Emergency Provider Emergency Medicine
DX: F33.1 Major depressive disorder, recurrent, moderate (principal); T43.222A Poisoning by selective serotonin reuptake inhibitors, intentional self-harm, initial encounter; R45.851 Suicidal ideations; R11.2 Nausea with vomiting, unspecified; Y92.9 Unspecified place or not applicable; F41.1 Generalized anxiety disorder; F43.0 Acute stress reaction; Z11.52 Encounter for screening for COVID-19; Z20.822 Contact with and (suspected) exposure to COVID-19; Z79.899 Other long term (current) drug therapy
CPT/HCPCS: 0241U; 36415; 80053; 80143; 80179; 80307; 81003; 82248; 82550; 83690; 83735; 85025; 93005; 99285; S9485

== ENCOUNTER → 2023-09-05 08:49 | Outpatient (BNV) | payer OTHER, SELFPAY | PROVIDERS: Emergency Provider Emergency Medicine; Visit Provider Internal Medicine | DX: T50.901A Poisoning by unspecified drugs, medicaments and biological substances, accidental (unintentional), initial encounter (principal) | CPT/HCPCS: 93010 ==

== ENCOUNTER 2023-11-12 18:27 | Emergency (ER) | payer OTHER, SELFPAY ==
[2023-11-12 19:01] VITALS: BP 230/92
[2023-11-12 19:17] VITALS: BP 161/91; PULSE 76; RESP 16; TEMP 37; O2SAT 93; BMI 35.6
--- NOTE | 2023-11-12 19:49 | MHC.EDTECH ---
Addendum entered by Silvia Davis 11/12/23 19:58: 1-1 sitter at bedside for safety Original Note: Patient came in by EMS,patient is calm and cooperative,vitals taken, security called to assist with change release manager,patient ambulated to the bathroom changed into crisis attire,belongings list completed and copy placed in chart,all belongings locked in LOCKER 7 in the POD. Labs and urine obtained and sent to lab.
[2023-11-12 19:50] LABS: MANUAL DIFF FLAG NO
[2023-11-12 19:52] LABS: Basophils Absolute Auto 0.1 X10*3/uL (0.0-0.2); Basophils Percent Auto 0.7 % (0-2); Eosinophils Absolute Auto 0.1 X10*3/uL (0.0-0.4); Eosinophils Percent Auto 1.9 % (0-4); Hematocrit 40.9 % (42.0-52.0); Hemoglobin 14.6 g/dl (14.0-18.0); Imm Gran Abs Auto 0.03 X10*3/uL (0.00-0.03); Imm Gran Pct Auto 0.4 % (0.0-0.4); Lymphocytes Absolute Auto 0.9 X10*3/uL (1.2-4.9); Lymphocytes Percent Auto 13.8 % (20-40); Mean Corpuscular HGB Conc 35.7 g/dl (31.0-36.0); Mean Corpuscular Hemoglobin 32.9 pg (27.0-33.0); Mean Corpuscular Volume 92.1 fL (80.0-98.0); Mean Platelet Volume 12.2 fL (9.4-12.4); Monocytes Absolute Auto 0.7 X10*3/uL (0.1-1.2); Monocytes Percent Auto 10.2 % (2-11); Platelet Count 146 X10*3/uL (160-400); Red Blood Count 4.44 X10*6/uL (4.60-5.80); Red Cell Distribution Width 13.8 % (11.0-16.0); White Blood Count 6.8 X10*3/uL (4.8-10.8)
[2023-11-12 19:53] LABS: Appearance Urine Clear; Color Urine Yellow; Glucose Urine UA Negative (Negative); Leukocyte Esterase Urine Negative (Negative); Nitrite Urine Negative (Negative); Specific Gravity - Urine 1.025 (1.005-1.025); Urine Blood Negative (Negative); Urine Ketones Negative (Negative); Urine Protein Negative (Neg-Trace)
[2023-11-12 20:06] LABS: Amphetamine Screen Urine Not Detected (Not Detect); Barbiturates, Urine Not Detected (Not Detect); Benzodiazepines Screen Urine Not Detected (Not Detect); Buprenorphine Scr Not Detected (Not Detect); Cannabinoid Screen Urine Not Detected (Not Detect); Cocaine Screen Urine Not Detected (Not Detect); Fentanyl, urine Not Detected (Not Detect); Methadone Screen, Urine Not Detected (Not Detect); Opiate Screen Urine Not Detected (Not Detect); Oxycodone Screen Urine Not Detected (Not Detect); Phencyclidine Screen Urine Not Detected (Not Detect)
[2023-11-12 20:13] LABS: Alanine Aminotransferase 11 U/L (0-40); Albumin Level 3.9 g/dL (3.5-5.0); Alkaline Phosphatase 68 U/L (39-117); Anion Gap 14 (12-20); Aspartate Amino Transferase 15 U/L (5-37); Bilirubin Total 0.4 mg/dL (0.0-1.0); Blood Urea Nitrogen 18 mg/dL (9-16); Calcium 8.6 mg/dL (8.4-10.2); Carbon Dioxide 22 mmol/L (22-29); Chloride 108 mmol/L (96-108); Creatinine Clr Calc Pharmacy 103.3; Estimated Glomerular Filt Rate > 60; Ethanol < 10 mg/dL; Glucose Random 100 mg/dL (60-115); Potassium 3.5 mmol/L (3.3-5.1); Sodium 140 mmol/L (135-145); Total Protein 6.8 g/dL (6.5-8.0)
--- NOTE | 2023-11-12 20:20 | ED_ITS ---
HPI - General Adult General Chief complaint: Psychiatric Symptoms Stated complaint: SI Time Seen by Provider: 11/12/23 19:22 Source: patient Mode of arrival: ambulatory Limitations: no limitations History of Present Illness HPI narrative: 63-year-old male history of SI attempt in the past presents to ED for vague suicidal ideation for the past couple of days due to financial issues. Patient states suicidal attempt in August. Patient was referred by his therapist to come to the ED. Related Data Home Medications ?Medication ?Instructions ?Recorded ?Confirmed buspirone 10 mg tablet 30 mg PO BID 03/24/22 11/13/23 omeprazole 20 mg capsule,delayed 20 mg PO DAILY 03/24/22 11/13/23 release Allergies Allergy/AdvReac Type Severity Reaction Status Date / Time No Known Allergies Allergy Verified 11/12/23 19:17 [No Known Allergies*] Review of Systems 2 Review of Systems: Suicidal statements Yes all other systems are reviewed and are negative [facility] Social History Social History Alcohol intake: former Advance Directives: No Advance Directives Information Provided: No Do you have a plan to hurt others: No Plan Physical Exam ED Vital Signs: Vital Signs - 24 hr 11/13/23 06:31 11/13/23 16:17 Temperature 98.3 F 97.9 F Pulse Rate 63 84 Respiratory Rate 18 18 Blood Pressure 140/86 H 145/92 H Pulse Oximetry 95 96 Oxygen Delivery Method Room Air Room Air BMI result Body Mass Index 35.6 Const General: cooperative, healthy appearing, comfortable, no acute distress, well developed, alert, awake and Physically active Orientation/consciousness: oriented to person, oriented to place, oriented to time and patient oriented x3 HENMT Head: Yes normal to inspection, Yes No palpable skull fracture present, Yes normocephalic, Yes atraumatic and No abrasion Eyes General: appearance normal, both eyes and all related structures Neck Neck: Yes normal visual inspection, Yes full ROM, Yes no lymphadenopathy, Yes no meningeal signs, Yes trachea midline, Yes supple, No anterior neck swelling and No tender Chest Chest palpation & inspection: normal inspection of the chest and normal palpation of entire chest wall Resp Effort & Inspection: normal respiratory effort and able to speak in complete sentences Auscultation: clear to auscultation bilaterally Cardio Jugular venous distension: no JVD Heart sounds: S1 normal heart sound present and S2 normal heart sound present GI Inspection: Yes normal to inspection Palpation (GI): Soft to palpation, not firm, nontender, no guarding and not rigid General: No CVA tenderness and Yes no CVA tenderness Back/Spine/Pelvis Back: no CVA tenderness, No CVA tenderness and No back tenderness Skin General skin exam: no rashes or lesions noted, elasticity normal and turgor normal Neuro General: oriented to person, oriented to place, oriented to time, patient oriented x3, gait normal, tone normal, moves all extremities, Normal light touch and pain sensation, no meningeal signs, no focal motor deficits, CN's II-XI intact bilaterally and normal sensation to monofilament Extrem General: Yes normal to inspection, Yes full ROM and Yes capillary refill normal Psych Appearance: grossly normal, well kempt and not disheveled Course Reevaluation(s) Reevaluation #1: Continue physician observation, patient is pending care team evaluation, no acute events overnight. Time: 08:30 Reevaluation #2: Patient is medically cleared for inpatient psychiatric unit. Time: 11:56 Medications Administered Discontinued Medications Generic Name Dose Route Start Last Admin Trade Name Freq PRN Reason Stop Dose Admin Buspirone HCl 30 mg 11/13/23 09:00 11/13/23 08:04 Buspirone Hcl 10 Mg Tablet PO 30 mg BID TRAVIS Administration Omeprazole 20 mg 11/13/23 09:00 11/13/23 08:04 Omeprazole 20 Mg Capsule. PO 20 mg DAILY TRAVIS Administration Medical Decision Making Medical Decision Making [facility] Narrative: 63-year-old male presents to ED for vague suicidal statements. Patient states suicidal due to financial issues. Labs care team consult placed. Differential Diagnosis Differential Diagnoses: The differential diagnosis associated with the presentation includes (SI, HI) Admission/Observation Consideration of admission/observation: Escalation of care including admission/observation considered Consult Healthcare Provider Management of the patient was discussed with: Best Worker (Care team) Lab Data [facility] Lab Attestation statement: I reviewed the patient's lab results. 11/12/23 19:42 11/12/23 19:42 Labs: Lab Results 11/12/23 11/13/23 Range/Units 19:42 11:51 WBC 6.8 (4.8-10.8) X10*3/uL RBC 4.44 L (4.60-5.80) X10*6/uL Hgb 14.6 (14.0-18.0) g/dl Hct 40.9 L (42.0-52.0) % MCV 92.1 (80.0-98.0) fL MCH 32.9 (27.0-33.0) pg MCHC 35.7 (31.0-36.0) g/dl RDW 13.8 (11.0-16.0) % Plt Count 146 L (160-400) X10*3/uL MPV 12.2 (9.4-12.4) fL Immature Gran % (Auto) 0.4 (0.0-0.4) % Neut % (Auto) 73.0 (45-73) % Lymph % (Auto) 13.8 L (20-40) % [place] % (Auto) 10.2 (2-11) % Eos % (Auto) 1.9 (0-4) % Baso % (Auto) 0.7 (0-2) % Lymph # (Auto) 0.9 L (1.2-4.9) X10*3/uL [place] # (Auto) 0.7 (0.1-1.2) X10*3/uL Eos # (Auto) 0.1 (0.0-0.4) X10*3/uL Baso # (Auto) 0.1 (0.0-0.2) X10*3/uL Abs Immat Gran (auto) 0.03 (0.00-0.03) X10*3/uL Absolute Neuts (auto) 5.0 (2.0-8.3) x10*3/uL Absolute Nucleated RBC 0.000 (0.0-0.012) X10*3/uL Nucleated RBC % (auto) 0.0 (0.0-0.2) /100WBC Sodium 140 (135-145) mmol/L Potassium 3.5 (3.3-5.1) mmol/L Chloride 108 (96-108) mmol/L Carbon Dioxide 22 (22-29) mmol/L Anion Gap 14 (12-20) BUN 18 H (9-16) mg/dL Creatinine 0.99 (0.5-1.4) mg/dL Estim Creat Clear Calc 103.3 Estimated GFR > 60 Random Glucose 100 (60-115) mg/dL Calcium 8.6 D (8.4-10.2) mg/dL Total Bilirubin 0.4 (0.0-1.0) mg/dL AST 15 (5-37) U/L ALT 11 (0-40) U/L Alkaline Phosphatase 68 (39-117) U/L Total Protein 6.8 (6.5-8.0) g/dL Albumin 3.9 (3.5-5.0) g/dL Urine Color Yellow Urine Appearance Clear Urine pH 6.0 (5.0-9.0) Ur Specific [place] 1.025 (1.005-1.025) Urine Protein Negative (Neg-Trace) mg/dL Urine Glucose (UA) Negative (Negative) mg/dL Urine Ketones Negative (Negative) mg/dL Urine Blood Negative (Negative) Urine Nitrite Negative (Negative) Ur Leukocyte Esterase Negative (Negative) Urine Opiates Screen Not Detected (Not Detect) Ur Buprenorphine Scrn Not Detected (Not Detect) ng/mL Ur Oxycodone Screen Not Detected (Not Detect) ng/mL Urine Methadone Screen Not Detected (Not Detect) ng/mL Urine Fentanyl Screen Not Detected (Not Detect) Ur Barbiturates Screen Not Detected (Not Detect) Ur Phencyclidine Scrn Not Detected (Not Detect) Ur Amphetamines Screen Not Detected (Not Detect) U Benzodiazepines Scrn Not Detected (Not Detect) Urine Cocaine Screen Not Detected (Not Detect) U Marijuana (THC) Screen Not Detected (Not Detect) Ethyl Alcohol < 10 mg/dL Influenza Type A (PCR) NEGATIVE (Negative) Influenza Type B (PCR) NEGATIVE (Negative) RSV RNA Qual (PCR) NEGATIVE (Negative) SARS-CoV-2 RNA (RT-PCR) NEGATIVE (Negative) Independent Historian Clinical information obtained from an independent historian. History obtained from or confirmed by: Other (patient) External Record Review External record reviewed: Other (prior visits) Discharge Plan Discharge Clinical Impression: Suicidal ideation, Depression, unspecified Patient Disposition: Xfer Other Additional Instructions: Take medications as prescribed and return to the ER or if you require any further assistance in the future. Prescriptions: No Action buspirone 10 mg Tablet 30 mg PO BID omeprazole 20 mg Capsule,Delayed Release(Dr/Ec) 20 mg PO DAILY Interventions: Wheeler-Suicide Risk Severity Scale Last Done: 11/13/23 02:13 Acute Care Transfer Worksheet (ED) Last Done: 11/13/23 16:17 Discharge Date/Time: 11/13/23 16:19 Print Language: [place]
--- NOTE | 2023-11-12 20:27 | MHC.EDTECH ---
Patient was given a turkey sandwich,cheese stick,and a cup of yanet crystal per request.
[2023-11-12 21:16] VITALS: BP 162/83; PULSE 63; RESP 18; TEMP 36.9; O2SAT 95
--- NOTE | 2023-11-12 21:20 | MHC.EDTECH ---
Hourly rounds and vitals completed,patient is resting comfortably at this time,1-1 sitter at bedside for safety.
--- NOTE | 2023-11-12 22:23 | MHC.EDTECH ---
Patient given an ice cream with delvin crackers per request
--- NOTE | 2023-11-13 | ECG_ITS ---
Test Reason : QT INTERVAL Blood Pressure : / mmHG Vent. Rate : 063 BPM Atrial Rate : 063 BPM P-R Int : 150 ms QRS Dur : 092 ms QT Int : 418 ms P-R-T Axes : 017 022 012 degrees QTc Int : 427 ms Normal sinus rhythm Normal ECG When compared with ECG of 05-SEP-2023 13:31, No significant change was found Referred By: Vero Pak Electronically Signed By:EDDY BULLARD
--- NOTE | 2023-11-13 03:27 | PC.NURSE ---
pt resting comfortably with eyes closed, breathing even and unlabored, no apparent distress noted at this time
[2023-11-13 06:31] VITALS: BP 140/86; PULSE 63; RESP 18; TEMP 36.8; O2SAT 95
--- NOTE | 2023-11-13 06:52 | PC.NURSE ---
Assumed care of patient at 0645. Patient is observed resting quietly in their room. No signs of distress observed. Breathing is even and unlabored. Will continue plan of care.
[2023-11-13] MEDS: busPIRone HCl 10 MG TABLET 30 MG PO (08:04)
[2023-11-13] MEDS: Omeprazole 20 MG CAPSULE.DR PO (08:04)
--- NOTE | 2023-11-13 12:25 | MHC.CARE ---
Referral faxed to [facility]
--- NOTE | 2023-11-13 12:27 | MHC.CARE ---
[facility].
[2023-11-13 12:35] LABS: Influenza A PCR NEGATIVE (Negative); Influenza B PCR NEGATIVE (Negative); Resp Syncy Virus RNA Qual PCR NEGATIVE (Negative); SARS COV2 PCR INHOUSE NEGATIVE (Negative)
[2023-11-13 16:17] VITALS: BP 145/92; PULSE 84; RESP 18; TEMP 36.6; O2SAT 96
== END 2023-11-13 16:19 | disposition other institution (70) ==
PROVIDERS: Physician Assistant Medical; Emergency Provider Internal Medicine; PCP Family Medicine
DX: R45.851 Suicidal ideations (principal); F32.A Depression, unspecified; Z59.9 Problem related to housing and economic circumstances, unspecified; Z03.818 Encounter for observation for suspected exposure to other biological agents ruled out
CPT/HCPCS: 0241U; 36415; 80053; 80307; 81003; 85025; 93005; 99285; S9485

== ENCOUNTER → 2023-11-13 13:42 | Outpatient (BNV) | payer OTHER, SELFPAY | PROVIDERS: Emergency Provider Internal Medicine; PCP Family Medicine; Visit Provider Internal Medicine | DX: R45.851 Suicidal ideations (principal) | CPT/HCPCS: 93010 ==

== ENCOUNTER 2023-12-06 13:07 | Emergency (ER) | payer OTHER, SELFPAY ==
--- NOTE | 2023-12-06 13:14 | ED.GENADULT ---
HPI - General Adult General Chief complaint: Psychiatric Symptoms Stated complaint: SEC 12, SI,COOPERATIVE @ THIS TIME [place] [facility] Time Seen by Provider: 12/06/23 13:14 Source: patient and EMS Mode of arrival: EMS Limitations: no limitations History of Present Illness ED Provider: Kyra Hernandez PA-C HPI narrative: Patient is a 63 year old assigned male at with a history of anxiety and depression presenting to the emergency department today with suicidal ideation and a cut on his left wrist. Patient states that he has been feeling more down lately and cut himself. Patient denies any dizziness, lightheadedness, abdominal pain, nausea, vomiting, fever, chills, blurry vision, double vision, loss of vision, chest pain, difficulty breathing, shortness of breath, back pain, night sweats, pain with urination, increased urinary frequency, increased urinary urgency, blood in his urine or stool, syncope or a near syncopal episode, bowel incontinence, bladder incontinence, or any other complaints at this time. Relieving factors: none Exacerbating factors: none Associated symptoms: denies other symptoms Treatments prior to arrival: none Related Data Home Medications ?Medication ?Instructions ?Recorded ?Confirmed buspirone 10 mg tablet 30 mg PO BID 03/24/22 11/13/23 omeprazole 20 mg capsule,delayed 20 mg PO DAILY 03/24/22 11/13/23 release Allergies Allergy/AdvReac Type Severity Reaction Status Date / Time No Known Allergies Allergy Verified 12/06/23 13:29 [No Known Allergies*] Review of Systems Constitutional: Constitutional: Reports no additional constitutional complaints, Denies chills, Denies fever(s) and Denies night sweats Eyes: Eyes: Reports no additional eye complaints, Denies blurry vision, Denies change in vision, Denies diplopia, Denies eye discharge, Denies loss of vision and Denies eye pain ENT: Denies dizziness Cardiovascular: Cardiovascular: Reports no additional cardiovascular complaints, Denies chest pain, Denies lightheadedness, Denies Loss of Consciousness and Denies dyspnea Respiratory: Respiratory: Reports no additional respiratory complaints and Denies dyspnea Gastrointestinal: Gastrointestinal: Reports no additional gastrointestinal complaints, Denies abdominal pain, Denies melena, Denies hematochezia, Denies change in bowel habits and Denies change in stool character Genitourinary: Genitourinary: Reports no additional male genitourinary complaints, Denies hematuria, Denies oliguria, Denies difficulty urinating, Denies dysuria, Denies urinary frequency, Denies urinary hesitancy, Denies urinary incontinence and Denies urinary urgency Musculoskeletal: Musculoskeletal: Reports no additional musculoskeletal complaints, Denies numbness and Denies tingling Comments: superficial left wrist cut Neurologic: Denies dizziness, Denies loss of vision, Denies numbness and Denies tingling Psychiatric: Psychiatric: Reports suicidal ideation Endocrine: Endocrine: Reports no additional endocrine complaints Hematologic/Lymphatic: Hematologic/Lymphatic: Reports no additional hematologic/lymphatic complaints Allergic/Immunologic: Allergic/Immunologic: Reports no additional allergic/immunologic complaints PMFSH Past Medical History Attestation statement: The following information was validated with the patient. Source: old records reviewed and nursing notes reviewed Social History Social History Alcohol intake: former Smoked in Last 30 Days: Yes Use of substances other than those prescribed or required for medical reasons: No Any prior treatment program specific to substance use: No Advance Directives: No Advance Directives Information Provided: Yes Physical Exam ED Vital Signs: Vital Signs - 24 hr 12/06/23 13:27 12/06/23 13:31 Temperature 97.9 F 97.9 F Pulse Rate 86 86 Respiratory Rate 18 18 Blood Pressure 154/88 H 154/88 H Pulse Oximetry 95 95 Oxygen Delivery Method Room Air Room Air BMI result Body Mass Index 36.7 Const General: cooperative, no acute distress, alert and awake Nutritional Appearance: well nourished Orientation/consciousness: patient oriented x3 Limitations: no limitations [facility] Head: Yes normal to inspection and Yes atraumatic Ears: hearing grossly normal bilaterally and external ears normal General nose exam: Normal external nose present, no nasal discharge noted and no epistaxis Face and sinus: Yes normal facial exam, No abrasion and No laceration Mouth: Normal oral and palatal mucosa present, no drooling and no muffled voice Eyes General: appearance normal, both eyes and all related structures Periorbital: periorbital findings normal Eyelids: Yes eyelids normal Conjunctivae: conjunctivae normal Pupils: Equal, round and reactive pupils present EOM: EOMs intact bilaterally Neck Neck: Yes normal visual inspection, Yes full ROM and Yes no lymphadenopathy Chest Chest palpation & inspection: normal inspection of the chest Resp Effort & Inspection: normal respiratory effort and able to speak in complete sentences GI Inspection: Yes normal to inspection Neuro General: patient oriented x3 and moves all extremities Cranial nerves: Yes Equal, round and reactive pupils present Cognition (Neuro): normal cognition Motor exam (neuro): 5/5 motor strength present throughout Sensory Exam: Normal double simultaneous stimulation for sensation Coordination: [id number] test normal Extrem Other: superficial laceration to the left volar wrist with no gaping or active bleeding General: Yes full ROM and Yes capillary refill normal Psych Appearance: grossly normal Mental Status: mental status grossly normal Affect: normal affect Attitude: cooperative Thought process: Normal thought process present Thought content: Normal thought content present Insight: Good insight present (Psych) Medical Decision Making Medical Decision Making MDM Narrative: Patient is a 63 year old assigned male at with a history of anxiety and depression presenting to the emergency department today with suicidal ideation and a left wrist laceration. Patient's physical exam was as noted in the physical exam portion of this note. Patient's blood work was unremarkable. Patient's urine showed no acute process. Patient's EKG was unremarkable. I explained my physical exam findings as well as all test results to the patient. I answered all questions asked by the patient. Patient remains on a section 12. Patient's disposition will be determined after CARE team evaluation. Differential Diagnosis Differential Diagnoses: The differential diagnosis associated with the presentation includes Suicidal ideation Admission/Observation Consideration of admission/observation: Escalation of care including admission/observation considered Patient's disposition will be determined after CARE team evaluation. Lab Data [facility] Lab Attestation statement: I reviewed the patient's lab results. My interpretation of these results are in the MDM Rationale portion of this note. 12/06/23 13:41 12/06/23 13:41 Labs: Lab Results 12/06/23 Range/Units 13:41 WBC 7.0 (4.8-10.8) X10*3/uL RBC 4.38 L (4.60-5.80) X10*6/uL Hgb 14.4 (14.0-18.0) g/dl Hct 41.0 L (42.0-52.0) % MCV 93.6 (80.0-98.0) fL MCH 32.9 (27.0-33.0) pg MCHC 35.1 (31.0-36.0) g/dl RDW 14.0 (11.0-16.0) % Plt Count 155 L (160-400) X10*3/uL MPV 12.5 H (9.4-12.4) fL Immature Gran % (Auto) 0.3 (0.0-0.4) % Neut % (Auto) 66.8 (45-73) % Lymph % (Auto) 19.8 L (20-40) % [place] % (Auto) 10.1 (2-11) % Eos % (Auto) 2.4 (0-4) % Baso % (Auto) 0.6 (0-2) % Lymph # (Auto) 1.4 (1.2-4.9) X10*3/uL [place] # (Auto) 0.7 (0.1-1.2) X10*3/uL Eos # (Auto) 0.2 (0.0-0.4) X10*3/uL Baso # (Auto) 0.0 (0.0-0.2) X10*3/uL Abs Immat Gran (auto) 0.02 (0.00-0.03) X10*3/uL Absolute Neuts (auto) 4.7 (2.0-8.3) x10*3/uL Absolute Nucleated RBC 0.000 (0.0-0.012) X10*3/uL Nucleated RBC % (auto) 0.0 (0.0-0.2) /100WBC Sodium 145 (135-145) mmol/L Potassium 3.1 L (3.3-5.1) mmol/L Chloride 110 H (96-108) mmol/L Carbon Dioxide 25 (22-29) mmol/L Anion Gap 13 (12-20) BUN 15 (9-16) mg/dL Creatinine 1.32 (0.5-1.4) mg/dL Estim Creat Clear Calc 78.6 Estimated GFR 55 Random Glucose 112 (60-115) mg/dL Calcium 8.7 (8.4-10.2) mg/dL Total Bilirubin 0.5 (0.0-1.0) mg/dL AST 15 (5-37) U/L ALT 10 (0-40) U/L Alkaline Phosphatase 68 (39-117) U/L Total Protein 6.9 (6.5-8.0) g/dL Albumin 3.9 (3.5-5.0) g/dL Salicylates < 5.0 L (15-30) mg/dL Acetaminophen < 3 (<30) mcg/mL Ethyl Alcohol < 10 mg/dL COVID-19 (TARSHA) Negative (Negative) COVID-19 Clin Com See Note Independent Interpretation I performed an independent interpretation of an: EKG Interpretation: Vent. Rate: 074 BPM Atrial Rate: 074 BPM P-R Int: 158 ms QRS Dur: 096 ms QT Int: 396 ms P-R-T Axes: 009 012 011 degrees QTc Int: 439 ms Normal sinus rhythm Normal ECG When compared with ECG of 13-NOV-2023 13:42, No significant change was found DD/ 1351 Independent Historian Clinical information obtained from an independent historian. History obtained from or confirmed by: EMS (EMS provided additional history and confirmed the history provided by the patient.) Discharge Plan Discharge Clinical Impression: Suicidal ideation, Depression Patient Disposition: Still a Patient Prescriptions: No Action buspirone 10 mg Tablet 30 mg PO BID omeprazole 20 mg Capsule,Delayed Release(Dr/Ec) 20 mg PO DAILY Interventions: [place]-Suicide Risk Severity Scale Last Done: 12/06/23 13:30 Print Language: Persian
--- NOTE | 2023-12-06 13:17 | ECG_ITS ---
Test Reason : MEDICAL CLEARANCE Blood Pressure : / mmHG Vent. Rate : 074 BPM Atrial Rate : 074 BPM P-R Int : 158 ms QRS Dur : 096 ms QT Int : 396 ms P-R-T Axes : 009 012 011 degrees QTc Int : 439 ms Normal sinus rhythm Normal ECG When compared with ECG of 13-NOV-2023 13:42, No significant change was found Referred By: Kyra Hernandez Electronically Signed By:Isiah Benavidez
[2023-12-06 13:27] VITALS: BP 154/88; PULSE 86; RESP 18; TEMP 36.6; O2SAT 95; BMI 36.7
[2023-12-06 13:31] VITALS: BP 154/88; PULSE 86; RESP 18; TEMP 36.6; O2SAT 95
[2023-12-06 13:46] LABS: MANUAL DIFF FLAG NO
[2023-12-06 13:49] LABS: Basophils Percent Auto 0.6 % (0-2); Eosinophils Absolute Auto 0.2 X10*3/uL (0.0-0.4); Eosinophils Percent Auto 2.4 % (0-4); Hemoglobin 14.4 g/dl (14.0-18.0); Imm Gran Abs Auto 0.02 X10*3/uL (0.00-0.03); Imm Gran Pct Auto 0.3 % (0.0-0.4); Lymphocytes Absolute Auto 1.4 X10*3/uL (1.2-4.9); Lymphocytes Percent Auto 19.8 % (20-40); Mean Corpuscular HGB Conc 35.1 g/dl (31.0-36.0); Mean Corpuscular Hemoglobin 32.9 pg (27.0-33.0); Mean Corpuscular Volume 93.6 fL (80.0-98.0); Mean Platelet Volume 12.5 fL (9.4-12.4); Monocytes Absolute Auto 0.7 X10*3/uL (0.1-1.2); Monocytes Percent Auto 10.1 % (2-11); Neutrophils Absolute Auto 4.7 x10*3/uL (2.0-8.3); Neutrophils Percent Auto 66.8 % (45-73); Platelet Count 155 X10*3/uL (160-400); Red Blood Count 4.38 X10*6/uL (4.60-5.80)
[2023-12-06 14:00] LABS: COVID-19 Test Negative (Negative); IDNOW Serial# 08D9AD1C
[2023-12-06 14:01] LABS: Alanine Aminotransferase 10 U/L (0-40); Albumin Level 3.9 g/dL (3.5-5.0); Alkaline Phosphatase 68 U/L (39-117); Anion Gap 13 (12-20); Aspartate Amino Transferase 15 U/L (5-37); Bilirubin Total 0.5 mg/dL (0.0-1.0); Blood Urea Nitrogen 15 mg/dL (9-16); Calcium 8.7 mg/dL (8.4-10.2); Carbon Dioxide 25 mmol/L (22-29); Chloride 110 mmol/L (96-108); Creatinine Clr Calc Pharmacy 78.6; Estimated Glomerular Filt Rate 55; Ethanol < 10 mg/dL; Glucose Random 112 mg/dL (60-115); Potassium 3.1 mmol/L (3.3-5.1); Sodium 145 mmol/L (135-145); Total Protein 6.9 g/dL (6.5-8.0)
[2023-12-06 14:02] LABS: Acetaminophen LAB < 3 mcg/mL (<30); Salicylate < 5.0 mg/dL (15-30)
[2023-12-06 15:13] LABS: Appearance Urine Cloudy; Color Urine Dark Yellow; Glucose Urine UA Negative (Negative); Leukocyte Esterase Urine Negative (Negative); Nitrite Urine Negative (Negative); PH 5.5 (5.0-9.0); Specific Gravity - Urine >= 1.030 (1.005-1.025); Urine Blood Negative (Negative); Urine Ketones Trace mg/dL (Negative); Urine Protein Trace mg/dL (Neg-Trace)
[2023-12-06 15:24] LABS: Amphetamine Screen Urine Not Detected (Not Detect); Barbiturates, Urine Not Detected (Not Detect); Benzodiazepines Screen Urine Not Detected (Not Detect); Buprenorphine Scr Not Detected (Not Detect); Cannabinoid Screen Urine Not Detected (Not Detect); Cocaine Screen Urine Not Detected (Not Detect); Fentanyl, urine Not Detected (Not Detect); Methadone Screen, Urine Not Detected (Not Detect); Opiate Screen Urine Not Detected (Not Detect); Oxycodone Screen Urine Not Detected (Not Detect); Phencyclidine Screen Urine Not Detected (Not Detect)
--- NOTE | 2023-12-06 19:14 | PC.NURSE ---
This RN assumed pt care @ 1900. Pt ambulates with a steady gait. Pt ca&ox4, no signs of acute distress. Pt requested to speak with this RN. Pt states I'm feeling very anxious, and I'm unable to sit still. I was at home earlier and I did this to myself and now I'm feeling like why did I do this. Plan of care ongoing.
--- NOTE | 2023-12-06 19:24 | PC.NURSE ---
Provider Basilio notified and aware pt feeling anxious and requesting meds. Plan of care ongoing.
--- NOTE | 2023-12-06 19:44 | PC.NURSE ---
This RN notified provider Anwer regarding pt requesting med for anxiety. No new orders at this time. Plan of care ongoing.
[2023-12-06 19:58] VITALS: BP 137/85; PULSE 62; RESP 16; TEMP 36.4; O2SAT 97
--- NOTE | 2023-12-06 20:01 | PC.NURSE ---
CC RN also notified and aware pt requesting meds for anxiety. Plan of care ongoing.
--- NOTE | 2023-12-06 20:12 | PC.NURSE ---
This RN received a call from Lamonte @ the [facility] in [place], [place]. Per Lamonte he has been accepted and the ambulance should be arriving in 10 mins . The accepting provider is Dr. Armando. [facility] ambulance to [facility] pt. Provider Anwer notified and aware pt requires d/c. Plan of care ongoing.
[2023-12-06 20:22] VITALS: BP 137/85; PULSE 62; RESP 16; TEMP 36.4; O2SAT 97
[2023-12-06] MEDS: LORazepam 1 MG TABLET 2 MG PO (20:31)
--- NOTE | 2023-12-06 20:33 | PC.NURSE ---
Pt medicated per aug. Plan of care ongoing.
== END 2023-12-06 23:20 ==
PROVIDERS: Physician Assistant Medical; Emergency Provider Emergency Medicine; PCP Family Medicine
DX: S61.512A Laceration without foreign body of left wrist, initial encounter (principal); F33.1 Major depressive disorder, recurrent, moderate; R45.851 Suicidal ideations; F41.9 Anxiety disorder, unspecified; X78.9XXA Intentional self-harm by unspecified sharp object, initial encounter; Y93.9 Activity, unspecified; Y92.9 Unspecified place or not applicable; Y99.8 Other external cause status; Z11.52 Encounter for screening for COVID-19; Z51.81 Encounter for therapeutic drug level monitoring; Z79.899 Other long term (current) drug therapy
CPT/HCPCS: 80053; 80143; 80179; 80307; 81003; 85025; 87635; 93005; 99285; S9485

== ENCOUNTER → 2023-12-06 13:17 | Outpatient (BNV) | payer OTHER, SELFPAY | PROVIDERS: Emergency Provider Emergency Medicine; PCP Family Medicine; Visit Provider Internal Medicine Cardiovascular Disease | DX: R45.851 Suicidal ideations (principal) | CPT/HCPCS: 93010 ==

== ENCOUNTER 2023-12-20 16:01 | Emergency (ER) | payer OTHER, SELFPAY ==
--- NOTE | ~2023-12-20 | CT_ITS ---
EXAMINATION: CT HEAD WITHOUT CONTRAST CLINICAL INFORMATION: Headache. Hypertension. COMPARISON: None available. TECHNIQUE: Contiguous axial imaging was performed from the skull base to vertex without intravenous administration of contrast. This CT examination was performed using dose optimization techniques as appropriate, variously including the following: *Automated exposure control. *Adjustment of mA and/or kV according to patient size (this includes techniques or standardized protocols for targeted exams where dose is matched to indication/reason for exam; i.e. extremities or head). *Use of iterative reconstruction technique. DLP: 776 mGy-cm FINDINGS: There is no evidence of acute intracranial hemorrhage or edematous territorial infarction. Jackson-white matter differentiation is preserved. Scattered and partially confluent hypoattenuation in the periventricular and deep white matter are consistent with mild to moderate microangiopathy. The ventricles are normal in morphology and size. No evidence for obstructive hydrocephalus. Normal positioning of the cerebellar tonsils. No abnormal mass effect or midline shift. No extra-axial fluid collections. No acute soft tissue or osseous abnormalities. Mild mucosal thickening of the paranasal sinuses. Changes of prior left-sided canal wall down mastoidectomy. Moderate mucosal thickening of the left-sided mastoidectomy bowl and middle ear cavity. The left-sided ossicles are absent. The right-sided mastoid air cells and middle ear cavity are clear. CT/CT head/brain wo IV con IMPRESSION: 1. No evidence of acute intracranial hemorrhage or edematous territorial infarction. 2. Mild to moderate underlying microangiopathy. 3. Changes of prior left-sided canal wall down mastoidectomy. Moderate mucosal thickening of the left-sided mastoidectomy bowl and middle ear cavity.
--- NOTE | 2023-12-20 16:11 | ECG_ITS ---
Test Reason : htn Blood Pressure : / mmHG Vent. Rate : 097 BPM Atrial Rate : 097 BPM P-R Int : 158 ms QRS Dur : 098 ms QT Int : 352 ms P-R-T Axes : 041 -15 020 degrees QTc Int : 447 ms Normal sinus rhythm Normal ECG When compared with ECG of 06-DEC-2023 13:51, No significant change was found Referred By: Blaire Montemayor Electronically Signed By:EDDY BULLARD
[2023-12-20 16:12] VITALS: BP 159/89; BP 170/102; PULSE 100; PULSE 102; RESP 18; TEMP 36.8; O2SAT 96; O2SAT 98; BMI 36.1
[2023-12-20 16:35] LABS: MANUAL DIFF FLAG NO
[2023-12-20 16:37] LABS: Basophils Absolute Auto 0.1 X10*3/uL (0.0-0.2); Basophils Percent Auto 0.9 % (0-2); Eosinophils Absolute Auto 0.2 X10*3/uL (0.0-0.4); Hemoglobin 15.4 g/dl (14.0-18.0); Imm Gran Abs Auto 0.02 X10*3/uL (0.00-0.03); Imm Gran Pct Auto 0.3 % (0.0-0.4); Lymphocytes Absolute Auto 1.6 X10*3/uL (1.2-4.9); Lymphocytes Percent Auto 20.8 % (20-40); Mean Corpuscular Hemoglobin 32.6 pg (27.0-33.0); Mean Corpuscular Volume 93.2 fL (80.0-98.0); Mean Platelet Volume 12.6 fL (9.4-12.4); Monocytes Absolute Auto 0.8 X10*3/uL (0.1-1.2); Monocytes Percent Auto 9.7 % (2-11); Neutrophils Absolute Auto 5.2 x10*3/uL (2.0-8.3); Neutrophils Percent Auto 66.3 % (45-73); Platelet Count 180 X10*3/uL (160-400); Red Blood Count 4.72 X10*6/uL (4.60-5.80); Red Cell Distribution Width 13.8 % (11.0-16.0); White Blood Count 7.9 X10*3/uL (4.8-10.8)
[2023-12-20 16:58] LABS: Troponin-I High Sensitivity 3.6 ng/L (<3.5-35.0)
[2023-12-20 17:09] LABS: Alanine Aminotransferase 14 U/L (0-40); Alkaline Phosphatase 73 U/L (39-117); Anion Gap 12 (12-20); Aspartate Amino Transferase 16 U/L (5-37); Bilirubin Total 0.5 mg/dL (0.0-1.0); Blood Urea Nitrogen 13 mg/dL (9-16); Calcium 9.3 mg/dL (8.4-10.2); Carbon Dioxide 27 mmol/L (22-29); Chloride 108 mmol/L (96-108); Estimated Glomerular Filt Rate 50; Glucose Random 141 mg/dL (60-115); Magnesium 2.1 mg/dL (1.6-2.6); Potassium 3.5 mmol/L (3.3-5.1); Sodium 142 mmol/L (135-145); Total Protein 6.9 g/dL (6.5-8.0)
[2023-12-20 18:26] VITALS: BP 174/98
--- NOTE | 2023-12-20 19:24 | ED_ITS ---
HPI - General Adult General Chief complaint: Recheck/Abnormal Lab/Rx Stated complaint: HTN - 170/102 Time Seen by Provider: 12/20/23 19:03 Source: patient Mode of arrival: ambulatory Limitations: no limitations History of Present Illness ED Provider: Vero Pak PA-C HPI narrative: This is a 63-year-old male who presents emergency department with complaints of elevated blood pressure and increasing anxiety. Patient states that he has had a tough year. He states that since June he has had financial issues and is having difficulties where he is staying. [facility] He has a psychiatrist and therapist who he has been speaking with however states that he feels as though his anxiety is getting the best of him. He states that he was previously admitted psychiatrically at a [facility] and was discharged last week. He states that since his discharge he has not been feeling himself. He states that he had this conversation with his therapist yesterday. He states that while he was waiting in the waiting room today he had thoughts of ending his life. He does not have a specific plan. He denies any homicidal ideations. No visual or auditory hallucinations. Patient states that while he was at home he decided to take his blood pressure which he thought was elevated, he has unsure what the level was. He states that he had slight lightheadedness however is attributed this to his anxiety. He denies any severe headache, blurred vision, chest pain, shortness of breath, abdominal pain, nausea, vomiting or diarrhea. No other complaints or concerns at this time. MD complaint: Anxiety, hypertension Onset (ago): day(s) Relieving factors: none Exacerbating factors: none Associated symptoms: denies other symptoms Treatments prior to arrival: none Related Data Home Medications ?Medication ?Instructions ?Recorded ?Confirmed buspirone 10 mg tablet 30 mg PO BID 03/24/22 12/06/23 omeprazole 20 mg capsule,delayed 20 mg PO QPM 03/24/22 12/06/23 release amlodipine 5 mg tablet 5 mg PO DAILY 12/06/23 12/06/23 brexpiprazole 4 mg tablet (Rexulti) 4 mg PO DAILY 12/06/23 12/06/23 bupropion HCl 200 mg tablet,12 hr 200 mg PO DAILY 12/06/23 12/06/23 sustained-release multivitamin 1 tab PO DAILY 12/06/23 12/06/23 Allergies Allergy/AdvReac Type Severity Reaction Status Date / Time No Known Allergies Allergy Verified 12/20/23 16:16 [No Known Allergies*] Review of Systems 2 Review of Systems: Yes all other systems are reviewed and are negative Constitutional: Constitutional: Reports as per [facility] [place] Social History Social History Alcohol intake: former Smoked in Last 30 Days: Yes Use of substances other than those prescribed or required for medical reasons: No Advance Directives: No Advance Directives Information Provided: No Physical Exam ED Vital Signs: Vital Signs - 24 hr 12/20/23 16:12 12/20/23 18:26 12/20/23 20:51 Temperature 98.2 F 97.8 F Pulse Rate 102 H 75 Respiratory Rate 18 15 Blood Pressure 159/89 H 174/98 H 138/88 Pulse Oximetry 96 95 Oxygen Delivery Method Room Air Room Air 12/21/23 02:24 Temperature 98.2 F Pulse Rate 70 Respiratory Rate 18 Blood Pressure 139/87 Pulse Oximetry 95 Oxygen Delivery Method Room Air BMI result Body Mass Index 36.1 Const General: cooperative, comfortable and no acute distress Orientation/consciousness: patient oriented x3 Limitations: no limitations HENMT Head: Yes normal to inspection, Yes normocephalic and Yes atraumatic Ears: hearing grossly normal bilaterally and TM's normal bilaterally General nose exam: Normal external nose present Face and sinus: Yes normal facial exam Mouth: Normal oral and palatal mucosa present, oropharynx normal and moist mucous membranes Throat: Yes posterior oropharynx normal Eyes General: appearance normal, both eyes and all related structures Eyelids: Yes eyelids normal Conjunctivae: conjunctivae normal Sclerae: sclerae normal Pupils: Equal, round and reactive pupils present EOM: EOMs intact bilaterally Neck Neck: Yes normal visual inspection, Yes full ROM and Yes no lymphadenopathy Lymphatic: no lymphadenopathy noted Chest Chest palpation & inspection: normal inspection of the chest Resp Effort & Inspection: normal respiratory effort and able to speak in complete sentences Auscultation: clear to auscultation bilaterally, no crackles, no rales, no rhonchi and no wheezes Cardio Rate: regular rate Rhythm: regular rhythm Heart sounds: S1 normal heart sound present and S2 normal heart sound present GI Inspection: Yes normal to inspection Skin General skin exam: no rashes or lesions noted Trauma: no lacerations or abrasions Wounds: no wounds Neuro General: patient oriented x3 and moves all extremities Cranial nerves: Yes Equal, round and reactive pupils present Extrem General: Yes normal to inspection Right upper extremity: normal to inspection Left upper extremity: normal to inspection Right lower extremity: normal to inspection Left lower extremity: normal to inspection Course Reevaluation(s) Reevaluation #1: Patient re-evaluated, feeling much better after receiving IV fluids. Blood pressure normalized to 138/88. He has no longer symptomatic at this time. CT scan does not show any acute process. It does show moderate mucosal thickening of the left-sided mastoidectomy bowl and middle ear cavity. He has history of chronic left ear infections which he has been monitored through ENT before. He has asymptomatic, no pain, no mastoid tenderness, left ear is unremarkable. At this point, patient is medically cleared for care team consult due to suicidal ideation. Time: 22:41 Reevaluation #2: Patient reporting increasing anxiety, will administer another mg of Ativan. Time: 23:57 Reevaluation #3: Patient resting comfortably, awaiting care team consult. Time: 02:19 Medications Administered Discontinued Medications Generic Name Dose Route Start Last Admin Trade Name Freq PRN Reason Stop Dose Admin Sodium Chloride 1,000 mls @ 999 mls/hr 12/20/23 19:59 12/20/23 22:07 Ns IV 12/20/23 20:59 Infused .Q1H1M ONE Infusion Lorazepam 1 mg 12/20/23 19:59 12/20/23 20:48 Lorazepam 2 Mg/Ml Vial IVPUSH 12/20/23 20:00 1 mg ONCE ONE Administration Lorazepam 1 mg 12/20/23 23:57 12/21/23 00:04 Lorazepam 2 Mg/Ml Vial IVPUSH 12/20/23 23:58 1 mg ONCE ONE Administration Medical Decision Making Medical Decision Making MDM Narrative: This is a 63-year-old male who presents emergency department with complaints of anxiety, and hypertension. Upon initial assessment, patient blood pressure 159/89. He is alert and oriented x4. No focal deficits on examination. He reports increasing anxiety over the last several months. He also endorses some suicidal ideation. Has been psychiatrically admitted in the past, last was last week through the [place]. He has no current plan. Labs returned as labs were ordered out in triage, he does have a slight increase in creatinine at 1.43 it appears as though his creatinine is around 1.3. Will medicate with IV fluids. Will also dose with 1 time dose of Ativan as patient appears to be anxious. This will also help with elevated blood pressure. He is agreement. He will also discussed mental health with the care team. Differential Diagnosis Differential Diagnoses: The differential diagnosis associated with the presentation includes Anxiety hypertension, dehydration, electrolyte derangement, suicidal or homicidal ideation Admission/Observation Consideration of admission/observation: Escalation of care including admission/observation considered Lab Data MDM Lab Attestation statement: I reviewed the patient's lab results. No leukocytosis, stable H&H, creatinine slightly elevated at 1.4, baseline around 1.3, mild hyperglycemia at 1:41 a.m., otherwise negative. Urine does not appear to be infected. Negative urine drug screen. 12/20/23 16:30 12/20/23 16:30 Labs: Lab Results 12/20/23 12/20/23 12/21/23 Range/Units 16:30 20:41 00:05 WBC 7.9 (4.8-10.8) X10*3/uL RBC 4.72 (4.60-5.80) X10*6/uL Hgb 15.4 (14.0-18.0) g/dl Hct 44.0 (42.0-52.0) % MCV 93.2 (80.0-98.0) fL MCH 32.6 (27.0-33.0) pg MCHC 35.0 (31.0-36.0) g/dl RDW 13.8 (11.0-16.0) % Plt Count 180 (160-400) X10*3/uL MPV 12.6 H (9.4-12.4) fL Immature Gran % (Auto) 0.3 (0.0-0.4) % Neut % (Auto) 66.3 (45-73) % Lymph % (Auto) 20.8 (20-40) % [place] % (Auto) 9.7 (2-11) % Eos % (Auto) 2.0 (0-4) % Baso % (Auto) 0.9 (0-2) % Lymph # (Auto) 1.6 (1.2-4.9) X10*3/uL [place] # (Auto) 0.8 (0.1-1.2) X10*3/uL Eos # (Auto) 0.2 (0.0-0.4) X10*3/uL Baso # (Auto) 0.1 (0.0-0.2) X10*3/uL Abs Immat Gran (auto) 0.02 (0.00-0.03) X10*3/uL Absolute Neuts (auto) 5.2 (2.0-8.3) x10*3/uL Absolute Nucleated RBC 0.000 (0.0-0.012) X10*3/uL Nucleated RBC % (auto) 0.0 (0.0-0.2) /100WBC Sodium 142 (135-145) mmol/L Potassium 3.5 (3.3-5.1) mmol/L Chloride 108 (96-108) mmol/L Carbon Dioxide 27 (22-29) mmol/L Anion Gap 12 (12-20) BUN 13 (9-16) mg/dL Creatinine 1.43 H (0.5-1.4) mg/dL Estim Creat Clear Calc 72.0 Estimated GFR 50 Random Glucose 141 H (60-115) mg/dL Calcium 9.3 D (8.4-10.2) mg/dL Magnesium 2.1 (1.6-2.6) mg/dL Total Bilirubin 0.5 (0.0-1.0) mg/dL AST 16 (5-37) U/L ALT 14 (0-40) U/L Alkaline Phosphatase 73 (39-117) U/L Troponin I High Sens 3.6 4.2 (<3.5-35.0) ng/L Total Protein 6.9 (6.5-8.0) g/dL Albumin 4.0 (3.5-5.0) g/dL Urine Color Yellow Urine Appearance Cloudy Urine pH 5.5 (5.0-9.0) Ur Specific [place] >= 1.030 H (1.005-1.025) Urine Protein Trace (Neg-Trace) mg/dL Urine Glucose (UA) Negative (Negative) mg/dL Urine Ketones Negative (Negative) mg/dL Urine Blood Negative (Negative) Urine Nitrite Negative (Negative) Ur Leukocyte Esterase Negative (Negative) Urine Opiates Screen Not Detected (Not Detect) Ur Buprenorphine Scrn Not Detected (Not Detect) ng/mL Ur Oxycodone Screen Not Detected (Not Detect) ng/mL Urine Methadone Screen Not Detected (Not Detect) ng/mL Urine Fentanyl Screen Not Detected (Not Detect) Ur Barbiturates Screen Not Detected (Not Detect) Ur Phencyclidine Scrn Not Detected (Not Detect) Ur Amphetamines Screen Not Detected (Not Detect) U Benzodiazepines Scrn Not Detected (Not Detect) Urine Cocaine Screen Not Detected (Not Detect) U Marijuana (THC) Screen Not Detected (Not Detect) Radiology Impression Discussion of test interpretation with radiology: I have reviewed the radiologist's reading. Radiologist Impression: CT/CT head/brain wo IV con IMPRESSION: 1. No evidence of acute intracranial hemorrhage or edematous territorial infarction. 2. Mild to moderate underlying microangiopathy. 3. Changes of prior left-sided canal wall down mastoidectomy. Moderate mucosal thickening of the left-sided mastoidectomy bowl and middle ear cavity. Dictated By: Xiang No DO External Record Review External record reviewed: Inpatient record, Office record, Outpatient record, Prior outpatient labs, Prior outpatient radiology, Primary care record and Outside ED record Discharge Plan Discharge Clinical Impression: Hypertension, Anxiety, Suicidal ideation Patient Disposition: Still a Patient Instructions: Generalized Anxiety Disorder (ED), Anxiety (ED) Prescriptions: No Action buspirone 10 mg Tablet 30 mg PO BID omeprazole 20 mg Capsule,Delayed Release(Dr/Ec) 20 mg PO QPM multivitamin Tablet 1 tab PO DAILY amlodipine 5 mg Tablet 5 mg PO DAILY bupropion HCl 200 mg Tablet Sustained-Release 12 Hr 200 mg PO DAILY Rexulti 4 mg Tablet 4 mg PO DAILY Rx Instructions: administer on day 8 for starting therapy Print Language: Tamazight
[2023-12-20] MEDS: 0.9 % Sodium Chloride 1,000 ML 999 ML IV (20:32)
[2023-12-20] MEDS: LORazepam 2 MG/ML VIAL 1 MG IVPUSH (20:48)
[2023-12-20 20:51] VITALS: BP 138/88; PULSE 75; RESP 15; TEMP 36.6; O2SAT 95
--- NOTE | 2023-12-20 20:53 | PC.NURSE ---
pt brought to [facility] after reporting SI comments. pt states he does not have a plan. pt states earlier had high bp reads at home which triggered anxiety. pts at is axox4 denies TOBAR/blurry vision/cp/sob/n/v/d. ivf infusing, ativan given per mar. vss, bp improved. pt changed over to hospital gown, belongings in pod locker, 1:1 sitter at bedside.
--- NOTE | 2023-12-20 20:56 | MHC.EDTECH ---
This tech took over care of patient at this time,previous tech did belongings list,patient is calm and resting on stretcher,1:1 sitter at bedside for safety
[2023-12-20 22:00] LABS: Troponin-I High Sensitivity 4.2 ng/L (<3.5-35.0)
--- NOTE | 2023-12-20 23:58 | PC.NURSE ---
pt is medically cleared per PA for careteam. pt attempting for urine sample at this time. pt reports he is starting to feel anxious. PA made aware. pt is calm/cooperative. 1:1 sitter at bedside.
--- NOTE | 2023-12-21 00:02 | MHC.EDTECH ---
Patient ambulated to the bathroom with a steady gait,urine obtained and sent to lab,1:1 sitter at bedside
[2023-12-21] MEDS: LORazepam 2 MG/ML VIAL 1 MG IVPUSH (00:04)
[2023-12-21 00:21] LABS: Appearance Urine Cloudy; Color Urine Yellow; Glucose Urine UA Negative (Negative); Leukocyte Esterase Urine Negative (Negative); Nitrite Urine Negative (Negative); PH 5.5 (5.0-9.0); Specific Gravity - Urine >= 1.030 (1.005-1.025); Urine Blood Negative (Negative); Urine Ketones Negative (Negative); Urine Protein Trace mg/dL (Neg-Trace)
[2023-12-21 00:31] LABS: Amphetamine Screen Urine Not Detected (Not Detect); Barbiturates, Urine Not Detected (Not Detect); Benzodiazepines Screen Urine Not Detected (Not Detect); Buprenorphine Scr Not Detected (Not Detect); Cannabinoid Screen Urine Not Detected (Not Detect); Cocaine Screen Urine Not Detected (Not Detect); Fentanyl, urine Not Detected (Not Detect); Methadone Screen, Urine Not Detected (Not Detect); Opiate Screen Urine Not Detected (Not Detect); Oxycodone Screen Urine Not Detected (Not Detect); Phencyclidine Screen Urine Not Detected (Not Detect)
[2023-12-21 02:24] VITALS: BP 139/87; PULSE 70; RESP 18; TEMP 36.8; O2SAT 95
--- NOTE | 2023-12-21 02:25 | MHC.EDTECH ---
Hourly rounds and vitals completed,patient is resting comfortably,1:1 sitter at bedside for safety
[2023-12-21 07:30] VITALS: BP 174/94; PULSE 70; RESP 20; TEMP 36.6; O2SAT 97
[2023-12-21 09:11] VITALS: BP 174/94; PULSE 70; RESP 18; TEMP 36.6; O2SAT 97
== END 2023-12-21 09:13 | disposition home or self-care (01) ==
PROVIDERS: Physician Assistant Medical; Emergency Provider Emergency Medicine; PCP Family Medicine; Referring Provider Physician Assistant
DX: R45.851 Suicidal ideations (principal); I10 Essential (primary) hypertension; F41.9 Anxiety disorder, unspecified; Z79.899 Other long term (current) drug therapy
CPT/HCPCS: 36415; 70450; 80053; 80307; 81003; 83735; 84484; 85025; 93005; 96361; 96374; 96376; 99285; J2060; S9485

== ENCOUNTER → 2023-12-20 16:11 | Outpatient (BNV) | payer OTHER, SELFPAY | PROVIDERS: Emergency Provider Emergency Medicine; PCP Family Medicine; Visit Provider Internal Medicine | DX: I10 Essential (primary) hypertension (principal) | CPT/HCPCS: 93010 ==

== ENCOUNTER 2023-12-23 13:37 | Emergency (ER) | payer OTHER, SELFPAY ==
--- NOTE | 2023-12-23 | ECG_ITS ---
Test Reason : INGESTION Blood Pressure : / mmHG Vent. Rate : 086 BPM Atrial Rate : 000 BPM P-R Int : 000 ms QRS Dur : 090 ms QT Int : 384 ms P-R-T Axes : 000 002 004 degrees QTc Int : 459 ms Normal sinus rhythm Nonspecific T wave changes Abnormal ECG When compared with ECG of 20-DEC-2023 16:25, No significant changes seen Referred By: Blaire Montemayor Electronically Signed By:Isiah Benavidez
[2023-12-23 13:47] VITALS: BP 140/70; PULSE 110; O2SAT 95
--- NOTE | 2023-12-23 13:55 | PC.NURSE ---
Pt presents from [facility] on [address]. Pt endorses taking 5 Wellbutrin (200 mg each) and 4 hydroxyzine (50mg each) around noon today as SI attempt. Pt reports SI and depression, denies HI. Pt denies any drug or alcohol use. Calm and cooperative, wants to talk to someone. Alert and oriented, breathing even and unlabored, skin warm and dry. NSR on bedside cardiac catheterization technician. IV placed by ems
[2023-12-23 14:08] VITALS: BP 124/79; PULSE 91; RESP 18; TEMP 37; O2SAT 95; BMI 36.0
--- NOTE | 2023-12-23 14:55 | ED_ITS ---
HPI - Psych General Chief Complaint: Psychiatric Symptoms Stated Complaint: SI Time Seen by Provider: 12/23/23 13:55 Source: patient, EMS and police Mode of arrival: EMS Limitations: no limitations History of Present Illness ED Provider: Dominique VARMA HPI Narrative: 63-year-old male history of anxiety, depression presents status post suicide attempt earlier today, patient reports just prior to arrival he took 5 wellbutrin ( 200 mg each), and 4 hydroxyzine (50 mg each) at around noon. He reports he took them in hopes to end his life he was feeling very overwhelmed. He reports he has been having anxiety and depression that have been worsening over the past few days unclear exactly what has been making them worse. He reports he takes psych meds and he is taking them as prescribed. Denies hallucinations. Denies drugs, alcohol and tobacco. No medical complaints at this time. Related Data Home Medications ?Medication ?Instructions ?Recorded ?Confirmed buspirone 10 mg tablet 30 mg PO BID 03/24/22 12/21/23 omeprazole 20 mg capsule,delayed 20 mg PO QPM 03/24/22 12/21/23 release amlodipine 5 mg tablet 5 mg PO DAILY 12/06/23 12/21/23 brexpiprazole 4 mg tablet (Rexulti) 1.5 mg PO DAILY 12/06/23 12/21/23 bupropion HCl 200 mg tablet,12 hr 200 mg PO DAILY 12/06/23 12/21/23 sustained-release Cyanacobalamin 1,000 mcg DAILY 12/21/23 12/21/23 cholecalciferol (vitamin D3) 25 25 mcg PO DAILY 12/21/23 12/21/23 mcg (1,000 unit) tablet folic acid 1 mg tablet 1 mg PO DAILY 12/21/23 12/21/23 nicotine (polacrilex) 4 mg gum 4 mg buccal Q2H PRN Nicotine 12/21/23 12/21/23 Cravings sennosides 8.6 mg-docusate sodium 1 tab PO BID 12/21/23 12/21/23 50 mg tablet (Colace 2-In-1) Allergies Allergy/AdvReac Type Severity Reaction Status Date / Time No Known Allergies Allergy Verified 12/23/23 14:10 [No Known Allergies*] Review of Systems 2 Review of Systems: Yes all other systems are reviewed and are negative [facility] Past Medical History Attestation statement: The following information was validated with the patient. Source: old records reviewed and nursing notes reviewed Social History Social History Alcohol intake: former Smoked in Last 30 Days: No Use of substances other than those prescribed or required for medical reasons: No Advance Directives: No Advance Directives Information Provided: No Physical Exam 2 Vital Signs: Vital Signs: Last Vital Signs Temp 98.3 F 12/23/23 15:36 Pulse 85 12/23/23 15:36 Resp 20 12/23/23 15:36 BP 145/80 H 12/23/23 15:36 Pulse Ox 96 12/23/23 15:36 O2 Del Method Room Air 12/23/23 15:36 BMI result Body Mass Index 36.0 vss Appearance: Alert.? Oriented X3.? No acute distress.? Head: Normocephalic, atraumatic, no step-offs or deformities Eyes: Pupils equal, round and reactive to light.? ENT: Pharynx normal.? Neck: Normal inspection.? Neck supple.? CVS: Normal heart rate and rhythm.? Pulses normal.? Respiratory: No respiratory distress.? Breath sounds normal.? Abdomen: Soft and nontender.? Skin: Skin warm and dry.? Normal skin color.? Normal skin turgor.? Extremities: No lower extremity edema.? No calf ttp. 5/5 strength to bilateral upper and lower extremities Back: No midline tenderness, no C-spine tenderness, full range of motion, no CVA tenderness bilaterally Neuro: Oriented X 3.? No motor deficit.? No sensory deficit. CN 2-12 intact Course Reevaluation(s) Reevaluation #1: CBC unremarkable. Chemistry pending. Salicylates acetaminophen pending. Urine pending. Time: 15:37 Reevaluation #2: Chemistry pending. Repeat EKGs pending. Patient on the monitoring analyst normal sinus rhythm. Awake alert. No acute distress. Sign out to Kyra. Medical Decision Making Medical Decision Making MDM Narrative: 63-year-old male presents status post suicide attempt by overdose at noon today, reports taking 5 Wellbutrin 200 mg each and 4 Hydroxyzine 50 mg each. Physical exam benign. Patient with a one-to-one at the bedside. Concerns for suicide attempt with anxiety, depression. Will rule out metabolic derangements. No medical complaints however. Will also rule out acute alcohol intoxication and polysubstance abuse. Plan at this time medical clearance evaluation by behavioral health team. Safety precautions in place Differential Diagnosis Differential Diagnoses: The differential diagnosis associated with the presentation includes Concerns for suicide attempt with anxiety, depression. Will rule out metabolic derangements. No medical complaints however. Will also rule out acute alcohol intoxication and polysubstance abuse. Admission/Observation Consideration of admission/observation: Escalation of care including admission/observation considered possible Consult Healthcare Provider Management of the patient was discussed with: Behavioral Health Provider Lab Data MDM Lab Attestation statement: I reviewed the patient's lab results. 12/23/23 15:30 12/23/23 15:30 Labs: Lab Results 12/23/23 Range/Units 15:30 WBC 7.3 (4.8-10.8) X10*3/uL RBC 4.60 (4.60-5.80) X10*6/uL Hgb 15.0 (14.0-18.0) g/dl Hct 41.6 L (42.0-52.0) % MCV 90.4 (80.0-98.0) fL MCH 32.6 (27.0-33.0) pg MCHC 36.1 H (31.0-36.0) g/dl RDW 13.8 (11.0-16.0) % Plt Count 154 L (160-400) X10*3/uL MPV 12.3 (9.4-12.4) fL Immature Gran % (Auto) 0.3 (0.0-0.4) % Neut % (Auto) 75.8 H (45-73) % Lymph % (Auto) 13.2 L (20-40) % Hettinger % (Auto) 8.7 (2-11) % Eos % (Auto) 1.4 (0-4) % Baso % (Auto) 0.6 (0-2) % Lymph # (Auto) 1.0 L (1.2-4.9) X10*3/uL Hettinger # (Auto) 0.6 (0.1-1.2) X10*3/uL Eos # (Auto) 0.1 (0.0-0.4) X10*3/uL Baso # (Auto) 0.0 (0.0-0.2) X10*3/uL Abs Immat Gran (auto) 0.02 (0.00-0.03) X10*3/uL Absolute Neuts (auto) 5.5 (2.0-8.3) x10*3/uL Absolute Nucleated RBC 0.000 (0.0-0.012) X10*3/uL Nucleated RBC % (auto) 0.0 (0.0-0.2) /100WBC External Record Review External record reviewed: Inpatient record, Office record, Outpatient record, Prior outpatient labs, Prior outpatient radiology and Primary care record Chronic Conditions Patient?s care impacted by: Other (Anxiety, depression, suicide attempt, obesity) Social Determinants Patient?s care significantly limited by Social Determinants of Health including: Other Social Determinant of Health Critical Care Time Critical Care Time Critical Care Time: Yes Total Critical Care Time: 35 Attestation: I attest to this time spent taking care of the patient, obtaining history, physical, reviewing labs, imaging, speaking to my attending, specialist or hospitalist. Discharge Plan Discharge Clinical Impression: Intentional overdose Patient Disposition: Still a Patient Prescriptions: No Action buspirone 10 mg Tablet 30 mg PO BID omeprazole 20 mg Capsule,Delayed Release(Dr/Ec) 20 mg PO QPM cholecalciferol (vitamin D3) 25 mcg (1,000 unit) Tablet 25 mcg PO DAILY Cyanacobalamin 1,000 mcg DAILY sennosides-docusate sodium [Colace 2-In-1] 8.6-50 mg Tablet 1 tab PO BID nicotine (polacrilex) 4 mg Gum 4 mg buccal Q2H PRN (Reason: Nicotine Cravings) folic acid 1 mg Tablet 1 mg PO DAILY amlodipine 5 mg Tablet 5 mg PO DAILY bupropion HCl 200 mg Tablet Sustained-Release 12 Hr 200 mg PO DAILY Rexulti 4 mg Tablet 1.5 mg PO DAILY Rx Instructions: administer on day 8 for starting therapy Interventions: [place]-Suicide Risk Severity Scale Last Done: 12/23/23 14:14 Print Language: German
--- NOTE | 2023-12-23 14:57 | PC.NURSE ---
Pt was changed over by security and belongings secured on arrival. 1:[address]
--- NOTE | 2023-12-23 15:10 | PC.NURSE ---
Poison control contacted with pts information. Recommendations as followed: Serial ECG every 2 hours X3 until stable CMP with mag level Serum and U tox Benzos for agitation and seizures Cardiac monitoring Supportive care K above 4 and Mag above 2
[2023-12-23 15:35] LABS: MANUAL DIFF FLAG NO
[2023-12-23 15:36] VITALS: BP 145/80; PULSE 85; RESP 20; TEMP 36.8; O2SAT 96
[2023-12-23 15:42] LABS: Basophils Percent Auto 0.6 % (0-2); Eosinophils Absolute Auto 0.1 X10*3/uL (0.0-0.4); Eosinophils Percent Auto 1.4 % (0-4); Hematocrit 41.6 % (42.0-52.0); Imm Gran Abs Auto 0.02 X10*3/uL (0.00-0.03); Imm Gran Pct Auto 0.3 % (0.0-0.4); Lymphocytes Percent Auto 13.2 % (20-40); Mean Corpuscular HGB Conc 36.1 g/dl (31.0-36.0); Mean Corpuscular Hemoglobin 32.6 pg (27.0-33.0); Mean Corpuscular Volume 90.4 fL (80.0-98.0); Mean Platelet Volume 12.3 fL (9.4-12.4); Monocytes Absolute Auto 0.6 X10*3/uL (0.1-1.2); Monocytes Percent Auto 8.7 % (2-11); Neutrophils Absolute Auto 5.5 x10*3/uL (2.0-8.3); Neutrophils Percent Auto 75.8 % (45-73); Platelet Count 154 X10*3/uL (160-400); Red Cell Distribution Width 13.8 % (11.0-16.0); White Blood Count 7.3 X10*3/uL (4.8-10.8)
[2023-12-23 16:05] LABS: Alanine Aminotransferase 12 U/L (0-40); Albumin Level 3.9 g/dL (3.5-5.0); Alkaline Phosphatase 65 U/L (39-117); Anion Gap 11 (12-20); Aspartate Amino Transferase 15 U/L (5-37); Bilirubin Total 0.6 mg/dL (0.0-1.0); Blood Urea Nitrogen 13 mg/dL (9-16); Calcium 8.9 mg/dL (8.4-10.2); Carbon Dioxide 25 mmol/L (22-29); Chloride 110 mmol/L (96-108); Creatinine Clr Calc Pharmacy 80.9; Estimated Glomerular Filt Rate 57; Ethanol < 10 mg/dL; Glucose Random 95 mg/dL (60-115); Magnesium 2.1 mg/dL (1.6-2.6); Potassium 3.2 mmol/L (3.3-5.1); Sodium 143 mmol/L (135-145); Total Protein 6.6 g/dL (6.5-8.0)
[2023-12-23 16:06] LABS: Acetaminophen LAB < 3 mcg/mL (<30); Salicylate < 5.0 mg/dL (15-30)
[2023-12-23 16:12] LABS: Appearance Urine Clear; Color Urine Yellow; Glucose Urine UA Negative (Negative); Leukocyte Esterase Urine Negative (Negative); Nitrite Urine Negative (Negative); PH 6.5 (5.0-9.0); Urine Blood Negative (Negative); Urine Ketones Negative (Negative); Urine Protein Negative (Neg-Trace)
[2023-12-23 16:30] LABS: Amphetamine Screen Urine Not Detected (Not Detect); Barbiturates, Urine Not Detected (Not Detect); Benzodiazepines Screen Urine Not Detected (Not Detect); Buprenorphine Scr Not Detected (Not Detect); Cannabinoid Screen Urine Not Detected (Not Detect); Cocaine Screen Urine Not Detected (Not Detect); Fentanyl, urine Not Detected (Not Detect); Methadone Screen, Urine Not Detected (Not Detect); Opiate Screen Urine Not Detected (Not Detect); Oxycodone Screen Urine Not Detected (Not Detect); Phencyclidine Screen Urine Not Detected (Not Detect)
--- NOTE | 2023-12-23 17:09 | ECG_ITS ---
Test Reason : INGESTION Blood Pressure : / mmHG Vent. Rate : 081 BPM Atrial Rate : 081 BPM P-R Int : 168 ms QRS Dur : 098 ms QT Int : 396 ms P-R-T Axes : 027 058 052 degrees QTc Int : 460 ms Normal sinus rhythm Normal ECG When compared with ECG of 23-DEC-2023 15:43, Sinus rhythm has replaced Junctional rhythm Questionable change in QRS axis Referred By: Blaire Montemayor Electronically Signed By:Isiah Benavidez
--- NOTE | 2023-12-23 17:11 | PC.NURSE ---
Poison control update: Supplement potassium to reach goal of 4 No other changes
[2023-12-23 17:27] VITALS: BP 144/75; PULSE 82; RESP 19; TEMP 36.8; O2SAT 97
[2023-12-23] MEDS: Potassium Chloride ER 20 MEQ TAB.ER.PRT PO (18:08)
[2023-12-23] MEDS: Potassium Chloride/H20 10 MEQ/100 ML PIGGYBACK 100 MEQ IV ×2 (18:11→19:16)
--- NOTE | 2023-12-23 18:42 | PC.NURSE ---
Pt continues to deny any pain or complaints, no new symptoms. NSR on environmental monitoring technician.
[2023-12-23 18:48] VITALS: BP 132/81; PULSE 78; RESP 23; TEMP 36.6; O2SAT 96
[2023-12-23 21:10] VITALS: BP 156/80; PULSE 89; RESP 22; TEMP 36.9; O2SAT 97
[2023-12-24 03:07] VITALS: BP 137/78; PULSE 65; RESP 20; TEMP 37; O2SAT 96
[2023-12-24 06:29] VITALS: BP 141/78; PULSE 68; RESP 20; TEMP 36.3; O2SAT 98
--- NOTE | 2023-12-24 08:51 | PC.NURSE ---
remains alert and oriented, provided with cross words and word searches. patient observer remains at bedside. spoke with poison control who continue to recommend observation w/ ekg monitor until 1200 today. offering no complaints at this time.
[2023-12-24 14:15] VITALS: BP 139/78; PULSE 70; RESP 18; TEMP 37.2; O2SAT 97
--- NOTE | 2023-12-25 | ECG_ITS ---
Test Reason : CHECK FOR PROLONG QT Blood Pressure : / mmHG Vent. Rate : 060 BPM Atrial Rate : 060 BPM P-R Int : 172 ms QRS Dur : 094 ms QT Int : 422 ms P-R-T Axes : 035 018 008 degrees QTc Int : 422 ms Normal sinus rhythm Normal ECG When compared with ECG of 23-DEC-2023 17:39, T wave inversion now evident in Inferior leads Referred By: Ga Price Electronically Signed By:Isiah Benavidez
[2023-12-25] MEDS: LORazepam 1 MG TABLET PO (05:40)
[2023-12-25 06:07] VITALS: BP 144/84; PULSE 61; TEMP 36.2; O2SAT 95
[2023-12-25 12:38] LABS: Ethanol < 10 mg/dL
[2023-12-25 12:47] LABS: COVID-19 Test Negative (Negative); IDNOW Serial# 152EDE1D
--- NOTE | 2023-12-25 12:52 | PC.NURSE ---
Call from . States that [facility] requesting a COVID PCR test. Re-ordering correct test at this time.
[2023-12-25 12:54] LABS: Thyroid Stimulating Hormone 2.46 uIU/mL (0.32-4.0)
--- NOTE | 2023-12-25 13:02 | PC.NURSE ---
COVID/flu/RSV sent.
[2023-12-25 14:06] LABS: Influenza A PCR NEGATIVE (Negative); Influenza B PCR NEGATIVE (Negative); Resp Syncy Virus RNA Qual PCR NEGATIVE (Negative); SARS COV2 PCR INHOUSE NEGATIVE (Negative)
--- NOTE | 2023-12-25 15:48 | PC.NURSE ---
Bed search/bed request to [facility] is requesting an EKG (pt. has already had two EKGs, and they are requiring a total of three EKGs) and a re-draw of his Potassium level.
--- NOTE | 2023-12-25 19:45 | PC.NURSE ---
This RN assumed pt care @ 1900. Pt standing in room up against the wall. Plan of care ongoing.
--- NOTE | 2023-12-25 20:12 | MHC.CARE ---
Pt has been accepted to [facility] for 12/25/23. EMS to pickup within 30 min of writing this note. Accepting is Dr. Cid. No n2n required
--- NOTE | 2023-12-25 20:25 | PC.NURSE ---
Pt has a bed at the [facility]. Pt ambulates with steady gait to the restroom. Plan of care ongoing.
[2023-12-25 21:09] VITALS: BP 144/84; PULSE 61; RESP 12; TEMP 36.2; O2SAT 95
== END 2023-12-25 21:18 ==
PROVIDERS: Emergency Medicine; Physician Assistant; Emergency Provider Emergency Medicine; PCP Family Medicine
DX: T43.292A Poisoning by other antidepressants, intentional self-harm, initial encounter (principal); T43.592A Poisoning by other antipsychotics and neuroleptics, intentional self-harm, initial encounter; Y92.009 Unspecified place in unspecified non-institutional (private) residence as the place of occurrence of the external cause; F32.A Depression, unspecified; F41.9 Anxiety disorder, unspecified; Z03.818 Encounter for observation for suspected exposure to other biological agents ruled out; Z79.899 Other long term (current) drug therapy
CPT/HCPCS: 0241U; 36415; 80053; 80143; 80179; 80307; 81003; 83735; 84132; 84443; 85025; 87635; 93005; 96365; 96366; 99285; J3480; S9485

== ENCOUNTER → 2023-12-23 15:43 | Outpatient (BNV) | payer OTHER, SELFPAY | PROVIDERS: Emergency Provider Emergency Medicine; PCP Family Medicine; Visit Provider Internal Medicine Cardiovascular Disease | DX: R94.31 Abnormal electrocardiogram [ECG] [EKG] (principal) | CPT/HCPCS: 93010 ==

== ENCOUNTER → 2023-12-25 18:16 | Outpatient (BNV) | payer OTHER, SELFPAY | PROVIDERS: Emergency Provider Emergency Medicine; PCP Family Medicine; Visit Provider Internal Medicine Cardiovascular Disease | DX: T50.901A Poisoning by unspecified drugs, medicaments and biological substances, accidental (unintentional), initial encounter (principal) | CPT/HCPCS: 93010 ==